=== PATIENT | male | born 1935 | race Caucasian/White ===

== ENCOUNTER 2020-06-29 02:18 | Inpatient (IN) | payer MEDICARE ==
[2020-06-29] VITALS (11 sets, daily range): BP systolic 102–142; BP diastolic 41–71
[~2020-06-29] VITALS: Ht 175 cm; Wt 80.0 kg
[~2020-06-29 02:18] MED LIST: ALLP100T PO; ASP81TEC PO; CALC390T PO; FAMO20TA5 PO; GLIM2TAB PO; LISI1TAB6 PO; OMEG1CAP51 PO; PIOG1TAB PO; [UNRECOGNIZED DRUG - OTHER] PO
[2020-06-29] MEDS ORDERED: MELATONIN 3 MG TABLET PO PRN (04:15)
[2020-06-29] MEDS ORDERED: IBUPROFEN TABLET 200 MG TAB PO PRN (04:15)
[2020-06-29] MEDS ORDERED: ONDANSETRON 4 MG/2 ML (SDV) Z0FRAN IVP PRN (04:15)
[2020-06-29] MEDS ORDERED: ACETAMINOPHEN 325 MG TABLET PO PRN (04:15)
[2020-06-29] MEDS ORDERED: guaiFENesin/DM (ROBITUSSIN DM) 10 ML UDC PO PRN (04:15)
[2020-06-29] MEDS ORDERED: diphenhydrAMINE 25 MG TAB (BENADRYL) PO PRN (04:15)
[2020-06-29] MEDS ORDERED: fentaNYL INJECTION 100 MCG/2 ML AMP IVP PRN (04:15)
[2020-06-29 04:44] LABS: BASOPHILS % (AUTO) 0 % (0-10); EOSINOPHILS % (AUTO) 0 % (0-10); HEMATOCRIT 35 % (40-54); HEMOGLOBIN 11.2 g/dL (13.3-17.7); LYMPHOCYTES # (AUTO) 0.8 10^3/uL (1.0-4.0); LYMPHOCYTES % (AUTO) 5 % (12-44); MEAN CORPUSCULAR HEMOGLOBIN 33 pg (25-34); MEAN CORPUSCULAR HGB CONC 33 g/dL (32-36); MEAN CORPUSCULAR VOLUME 102 fL (80-99); MEAN PLATELET VOLUME 9.8 fL (9.0-12.2); MONOCYTES # (AUTO) 0.5 10^3/uL (0.0-1.0); MONOCYTES % (AUTO) 3 % (0-12); NEUTROPHILS # (AUTO) 13.7 10^3/uL (1.8-7.8); NEUTROPHILS % (AUTO) 91 % (42-75); PLATELET COUNT 234 10^3/uL (130-400); WHITE BLOOD COUNT 15.1 10^3/uL (4.3-11.0)
[2020-06-29 04:53] LABS: ALBUMIN 3.5 GM/DL (3.2-4.5); CHLORIDE 98 MMOL/L (98-107); POTASSIUM 4.2 MMOL/L (3.6-5.0); SODIUM 131 MMOL/L (135-145)
[2020-06-29 04:55] LABS: GLUCOSE 206 MG/DL (70-105); TOTAL PROTEIN 5.8 GM/DL (6.4-8.2)
[2020-06-29 04:56] LABS: CARBON DIOXIDE 22 MMOL/L (21-32)
[2020-06-29 04:57] LABS: BILIRUBIN,TOTAL 0.4 MG/DL (0.1-1.0)
[2020-06-29 04:59] LABS: ALKALINE PHOSPHATASE 68 U/L (40-136); CREATININE SERUM 1.14 MG/DL (0.60-1.30); GFR ESTIMATED > 60
[2020-06-29 05:00] LABS: BUN/CREATININE RATIO 18
[2020-06-29 05:02] LABS: ALANINE AMINOTRANSFERASE 15 U/L (0-55)
[2020-06-29 05:25] LABS: ANISOCYTOSIS SLIGHT; BAND NEUTROPHILS 13 %; LYMPHOCYTES % (MANUAL) 6 %; METAMYELOCYTES % 2 %; MICROCYTOSIS SLIGHT; MONOCYTES % (MANUAL) 5 %; NEUTROPHILS % (MANUAL) 74 %; POIKILOCYTOSIS SLIGHT; POLYCHROMASIA SLIGHT
[2020-06-29 05:25] LABS: BILIRUBIN,URINE NEGATIVE (NEGATIVE); CLARITY,URINE CLEAR; COLOR,URINE YELLOW; GLUCOSE, URINE (UA) NEGATIVE (NEGATIVE); KETONES,URINE NEGATIVE (NEGATIVE); LEUKOCYTE ESTERASE ,URINE NEGATIVE (NEGATIVE); NITRITE,URINE NEGATIVE (NEGATIVE); PH,URINE 6.5 (5-9); PROTEIN,URINE NEGATIVE (NEGATIVE)
[2020-06-29 05:35] LABS: BACTERIA,URINE NEGATIVE /HPF; SQUAMOUS EPITHELIAL CELL,UR 0-2 /HPF
[2020-06-29] MEDS: AZITHROMYCIN INJECTION 500 MG in NS (IVPB) 250 ML IV SCH (08:48)
[2020-06-29] MEDS: cefTRIAXone FOR IV USE 1,000 MG in WATER (STERILE) FOR INJECTION 10 ML IV SCH (08:48)
[2020-06-29] MEDS ORDERED: ASPIRIN E.C. 325 MG (ECOTRIN) TABLET PO SCH (09:00)
--- NOTE | 2020-06-29 11:20 | Diagnostic Imaging Report ---
INDICATION: History of prostate cancer, strep throat, fever. TECHNIQUE: Single view chest 10:46 AM. CORRELATION STUDY: 01/28/2011 FINDINGS: There is suboptimal depth of inspiration. Given this, there is some crowding and atelectasis at the lung bases. Definitive consolidating infiltrate is not suggested. This also results in cardiac enlargement and mild vascular prominence. Calcified granuloma lateral left lung. Rather advanced degenerative change of the right to lesser degree left shoulder. Ventricular calcified loose bodies of the right shoulder. Gas below the right diaphragm appears generally stable slightly gas within the hepatic flexure. IMPRESSION: 1. Likely bibasilar areas of atelectasis owing to hypoventilation. Dictated by: Dictated on workstation # [id number]
[2020-06-29] MEDS ORDERED: CLOPIDOGREL 300 MG (PLAVIX) TABLET PO NR (11:30)
[2020-06-29] MEDS: ENOXAPARIN 80 MG/0.8 ML (LOVENOX) SYR SC SCH (12:05)
--- NOTE | 2020-06-29 14:20 | History & Physical-Hospitalist ---
History of Present Illness HPI/Chief Complaint Genaro Patel is an 84-year-old male with past medical history of hypertension, diabetes, coronary artery disease, GERD, gout, prostate cancer, who presented with chills. He reports that he had been at home and was shaking. He reports having fever. He denies any shortness of breath or cough. He denies any dysuria. He denies any chest pain or palpitations. He denies any abdominal pain. He denies any nausea or vomiting. He denies any diarrhea. He has no other complaints or concerns. He does have a history of coronary artery disease and has required 8 stents. Source: patient Exam Limitations: no limitations Date Seen 06/29/20 Time Seen by a Provider: 10:25 Attending Physician Monica Bañuelos Iftikhar MD Referring Physician Date of Admission Jun 29, 2020 at 03:39 Home Medications & Allergies Home Medications Reviewed patient Home Medication Reconciliation performed by pharmacy medication reconciliations thermal technician and/or nursing. Patients Allergies have been reviewed. Allergies Allergies Coded Allergies No Known Drug Allergies (Unverified02/04/11) Past Npwvttr-Dggrss-Rmuhdh Hx Past Med/Social Hx: Reviewed Nursing Past Med/Soc Hx Patient Social History Alcohol Use: Denies Use Recreational Drug Use: No Smoking Status: Former Smoker Physical Abuse Screen: No Sexual Abuse: No Recent Foreign Travel: No Contact w/other who traveled: No Recent Infectious Disease Expo: No Immunizations Up To Date Date of Pneumonia Vaccine: Jun 29, 2018 Seasonal Allergies Seasonal Allergies: No Past Medical History Reproductive: No Sexually Transmitted Disease: No History of Blood Disorders: Yes Review of Systems Constitutional: chills EENTM: no symptoms reported Respiratory: no symptoms reported Cardiovascular: no symptoms reported Gastrointestinal: no symptoms reported Genitourinary: no symptoms reported Musculoskeletal: no symptoms reported Skin: no symptoms reported Psychiatric/Neurological: No Symptoms Reported Physical Exam Physical Exam Vital Signs Vital Signs - First Documented 06/29/20 03:45 Temp 37.0 Pulse 68 Resp 18 B/P (MAP) 142/63 (89) Pulse Ox 96 O2 Delivery Room Air Capillary Refill : Less Than 3 Seconds Height, Weight, BMI Height: '" Weight: lbs. oz. kg; 25.79 BMI Method: General Appearance: No Apparent Distress, WD/WN HEENT: PERRL/EOMI, Pharynx Normal Neck: Normal Inspection, Supple Respiratory: Lungs Clear, Normal Breath Sounds, No Respiratory Distress Cardiovascular: Regular Rate, Rhythm, No Edema, No Murmur Gastrointestinal: Normal Bowel Sounds, Non Tender, Soft Extremity: Normal Inspection, Non Tender, No Pedal Edema Neurologic/Psychiatric: Alert, Oriented x3, No Motor/Sensory Deficits, Normal Mood/Affect Skin: Normal Color, Warm/Dry Results Results/Procedures Labs Laboratory Tests 06/29/20 04:25 Patient resulted labs reviewed. Imaging: Reviewed Imaging Report Assessment/Plan Admission Diagnosis NSTEMI Admission Status: Inpatient Order (span 2 midnights) Reason for Inpatient Admission: NSTEMI requiring further cardiology treatment and evaluation Assessment and Plan NSTEMI No chest pain EKG without acute changes Troponin trended up 2.2 this morning Cardiology consulted, appreciate assistance Started on ASA and Plavix Begin Metoprolol Continue Lisinopril Started on Lovenox SIRS Elevated procalcitonin Strep pharyngitis Reported fever at OSH, bandemia 38% Strep swab positive Chest xray without consolidation Repeat chest xray again without consolidation UA unremarkable Started on Rocephin and Azithromycin Obtain blood cultures Lactic acid normal Procalcitonin 32 T2DM SSI DVT Prophylaxis: already receiving therapeutic anticoagulation Diagnosis/Problems Diagnosis/Problems (1) NSTEMI (non-ST elevated myocardial infarction) Status: Acute (2) SIRS (systemic inflammatory response syndrome) Status: Acute (3) Elevated procalcitonin Status: Acute (4) Strep pharyngitis Status: Acute (5) T2DM (type 2 diabetes mellitus) Status: Chronic (6) HTN (hypertension) Status: Chronic MANUELITO LEMA MD Jun 29, 2020 14:20
[2020-06-29] MEDS ORDERED: ALLO300T2 PO (16:34)
[2020-06-29] MEDS ORDERED: CYAN-41 PO (16:34)
[2020-06-29] MEDS ORDERED: LISI-556 PO (16:34)
[2020-06-29] MEDS ORDERED: LEVO75TA6 PO (16:34)
[2020-06-29] MEDS ORDERED: TRIA15OI9 TOP (16:34)
[2020-06-29] MEDS ORDERED: DOXY100C2 PO (16:34)
[2020-06-29] MEDS ORDERED: REPA1TAB PO ×2 (16:34)
[2020-06-29] MEDS ORDERED: AMMO385C5 TOP (16:34)
[2020-06-29] MEDS ORDERED: ASPI-1238 PO (16:34)
[2020-06-29] MEDS ORDERED: CHOL10007 PO (16:34)
[2020-06-29] MEDS ORDERED: TMSL.4C PO (16:34)
[2020-06-29] MEDS ORDERED: FLUO20CA46 PO (16:34)
[2020-06-29] MEDS ORDERED: ROSU10TA28 PO (16:34)
[2020-06-29] MEDS ORDERED: FURO20TA4 PO (16:34)
--- NOTE | 2020-06-29 16:36 | NUR ---
SPOKE WITH THE PT(CALLED HIS CELL) AND WENT THRU THE EXT MED HISTORY TO COMPLETE THE MED REC PT WAS NOT ABLE TO REMEMBER THE NAMES OF HIS MEDICATIONS BUT WHEN I SAID THE NAMES (USING THE EXT MED HISTORY) THE PT WAS ABLE TO TELL ME HOW/WHEN HE TAKES EACH MEDICATION OTC MEDS: ASPIRIN 81 VIT B-12 VIT D3
--- NOTE | 2020-06-29 17:44 | Consultation-Cardiology ---
HPI-Cardiology Cardiology Consultation: Date of Consultation 06/29/20 Date of Admission Attending Physician Monica Bañuelos DO Admitting Physician Benji Guillermo MD Consulting Physician Stacey VASQUEZ MD HPI: Time Seen by a Provider: 11:00 Chief Complaint: Fatigue This is a 84-year-old gentleman with history of hypertension, diabetes, coronary artery disease, previous multiple PCI who presented with fever and chills. He denied any significant shortness of breath or cough. Significantly elevated white count. Working diagnosis of sepsis. He does have previous history of coronary artery disease with numerous stents done in [place]. Patient has positive troponin. He denies any chest pain. Denies active smoking. Pertinent family history is negative. Review of Systems-Cardiology Review of Systems Constitutional: As described under HPI; No As described under HPI, No no symptoms reported, No chills, No fever, No lightheadedness; tiredness Eyes: No As described under HPI, No no symptoms reported, No blindness, No blurred vision, No contact lenses, No drainage, No decreased acuity, No foreign body sensation, No pain, No vision change Ears/Nose/Throat: No As described under HPI, No no symptoms reported, No chronic hearing loss, No ear discharge, No ear pain, No nasal drainage, No ulcerations Respiratory: No no symptoms reported; As described under HPI; No As described under HPI, No cough, No orthopnea, No shortness of breath, No SOB with excertion Cardiovascular: No no symptoms reported; As described under HPI; No As described under HPI, No chest pain, No edema, No irregular heart rate, No lightheadedness, No palpitations Gastrointestinal: No no symptoms reported, No As described under HPI, No abdomen distended, No abdominal pain, No blood streaked bowels, No constipation, No diarrhea, No nausea, No vomiting, No stool coloration changes Genitourinary: No As described under HPI, No burning, No dysuria, No discharge, No frequency, No flank pain, No hematuria, No urgency Skin: No rash, No skin related problems, No ulcerations Psychiatric/Neurological: No anxiety, No depression, No seizure, No focal weakness, No syncope Hematologic: No bleeding abnormalities [facility]-[place] Hx Patient Social History Alcohol Use: Denies Use Recreational Drug Use: No Smoking Status: Former Smoker Recent Foreign Travel: No Recent Infectious Disease Expo: No Physical Abuse Screen: No Sexual Abuse: No Immunizations Up To Date Date of Pneumonia Vaccine: Jun 29, 2018 Past Medical History PMH As described under Assessment. Allergies and Home Medications Allergies Coded Allergies: No Known Drug Allergies (Unverified , 02/04/11) Home Medications Allopurinol 300 Mg Tablet, 300 MG PO DAILY, (Reported) Ammonium Lactate 385 Gm Cream..g., 1 APPLIC TOP DAILY, (Reported) APPLY TO ARMS AND LEGS Aspirin 81 Mg Tablet.dr, 81 MG PO HS, (Reported) Cholecalciferol (Vitamin D3) 25 Mcg Capsule, 25 MCG PO TID, (Reported) Cyanocobalamin (Vitamin B-12) 1,000 Mcg Tablet, 1,000 MCG PO DAILY, (Reported) Doxycycline Hyclate 100 Mg Capsule, 100 MG PO BID, (Reported) FILLED 06-19-2020 #20/10 DAY SUPPLY Fluoxetine HCl 20 Mg Capsule, 20 MG PO 1700, (Reported) Furosemide 20 Mg Tablet, 20 MG PO Q48H, (Reported) Levothyroxine Sodium 75 Mcg Tablet, 75 MCG PO DAILY, (Reported) Lisinopril 5 Mg Tablet, 5 MG PO BID, (Reported) Repaglinide 1 Mg Tablet, 2 MG PO DAILY, (Reported) TAKES 2 (1MG) TABS Repaglinide 1 Mg Tablet, 1 MG PO 1700 PRN for HYPERGLYCEMIA, (Reported) Rosuvastatin Calcium 10 Mg Tablet, 10 MG PO HS, (Reported) Tamsulosin HCl 0.4 Mg Cap, 0.4 MG PO 1700, (Reported) Triamcinolone Acetonide 15 Gm Oint, 1 APPFUL TOP PRN PRN for RASH, (Reported) Patient Home Medication List Home Medication List Reviewed: Yes Physical Exam-Cardiology Physical Exam Vital Signs/I&O 06/30/20 06/30/20 06/30/20 06/30/20 04:07 04:08 07:00 07:47 Temp 36.6 36.0 Pulse 67 75 67 Resp 20 24 B/P (MAP) 112/59 (76) 120/64 (82) Pulse Ox 92 94 O2 Delivery Room Air Room Air Room Air 06/30/20 06/30/20 06/30/20 08:00 08:00 12:00 Temp 35.9 Pulse 60 Resp 21 B/P (MAP) 133/59 (83) Pulse Ox 97 O2 Delivery Room Air Room Air Room Air 06/30/20 00:00 Intake Total 1440 ml Output Total 1050 ml Balance 390 ml Capillary Refill : Less Than 3 Seconds Constitutional: appears stated age, AAO x 3; No apparent distress; well- developed, well-nourished HEENT: PERRL; No discharge; hearing is well preserved, oral hygience is good; No ulceration, No xanthelasmas are seen Neck: No carotid bruit; carotid pulses are 2 + bilaterally Respiratory: chest is bilaterally symmetric, lungs clear to auscultation Cardiovascular: regular rate-rhythm, S1 and S2 Gastrointestinal: soft, audible bowel sounds; No spleenomegaly Rectal: deferred Extremities: normal range of motion, non-tender, normal inspection; No clubbing, No cyanosis; no lower extremity edema bilateral; No significant edema Neurologic/Psychiatric: no motor/sensory deficits, alert, normal mood/affect, oriented x 3, power is 5/5 both on sides Skin: normal color; No rash, No ulcerations Data Review Labs Laboratory Tests 06/29/20 21:15: Urine Color YELLOW, Urine Clarity CLEAR, Urine pH 7.0, Urine Specific [place] 1.015L, Urine Protein NEGATIVE, Urine Glucose (UA) NEGATIVE, Urine Ketones NEGATIVE, Urine Nitrite NEGATIVE, Urine Bilirubin NEGATIVE, Urine Urobilinogen 0.2, Urine Leukocyte Esterase NEGATIVE, Urine RBC (Auto) NEGATIVE, Urine RBC 0- 2, Urine WBC 0-2, Urine Squamous Epithelial Cells NONE, Urine Crystals NONE, Urine Bacteria TRACE, Urine Casts NONE, Urine Mucus NEGATIVE, Urine Culture Indicated NO 06/30/20 02:50: White Blood Count 7.9, Red Blood Count 3.11L, Hemoglobin 10.5L, Hematocrit 32L, Mean Corpuscular Volume 102H, Mean Corpuscular Hemoglobin 34, Mean Corpuscular Hemoglobin Concent 33, Red Cell Distribution Width 14.3, Platelet Count 192, Mean Platelet Volume 10.1, Immature Granulocyte % (Auto) 0, Neutrophils (%) (Auto) 78H, Lymphocytes (%) (Auto) 13, Monocytes (%) (Auto) 8, Eosinophils (%) (Auto) 0, Basophils (%) (Auto) 0, Neutrophils # (Auto) 6.1, Lymphocytes # (Auto) 1.0, Monocytes # (Auto) 0.6, Eosinophils # (Auto) 0.0, Basophils # (Auto) 0.0, Immature Granulocyte # (Auto) 0.0, Sodium Level 130L, Potassium Level 3.8, Chloride Level 99, Carbon Dioxide Level 21, Anion Gap 10, Blood Urea Nitrogen 21H, Creatinine 0.97, Estimat Glomerular Filtration Rate > 60, BUN/Creatinine Ratio 22, Glucose Level 133H, Calcium Level 7.6L, Corrected Calcium 8.2L, Total Bilirubin 0.3, Aspartate Amino Transf (AST/SGOT) 27, Alanine Aminotransferase (ALT/SGPT) 17, Alkaline Phosphatase 64, Total Protein 5.4L, Albumin 3.2, Procalcitonin 29.98H ECG Impression ECG Comment Artifact. No acute ST-T wave abnormalities. A/P-Cardiology Assessment/Admission Diagnosis Severe sepsis, Hyponatremia, CAD, Non-STEMI Plan Severe sepsis, broad-spectrum antibiotics. Defer to the primary team. Hyponatremia, unclear etiology. CAD, dual antiplatelet therapy. Non-STEMI, positive troponin. Previous multiple PCI. Will likely require coronary angiography. However patient is not having active chest pain. No active ST-T wave abnormalities on EKG. Severe sepsis. I will wait for the sepsis to improve before we intervene. Thank you for your consultation. Please call me if you have any questions. Rick Vasquez MD, FACP, FACC, FSCAI, FHRS, CCDS Interventional Cardiology Cardiac Electrophysiology Vascular Medicine and Endovascular Interventions Stacey VASQUEZ MD Jun 29, 2020 17:44
[2020-06-29] MEDS: meTOprolol TARTRATE 25 MG (LOPRESSOR) TABLET PO SCH (20:23)
[2020-06-29 21:28] LABS: BILIRUBIN,URINE NEGATIVE (NEGATIVE); CLARITY,URINE CLEAR; COLOR,URINE YELLOW; GLUCOSE, URINE (UA) NEGATIVE (NEGATIVE); KETONES,URINE NEGATIVE (NEGATIVE); LEUKOCYTE ESTERASE ,URINE NEGATIVE (NEGATIVE); NITRITE,URINE NEGATIVE (NEGATIVE); PROTEIN,URINE NEGATIVE (NEGATIVE)
[2020-06-29 21:35] LABS: RBC,URINE 0-2 /HPF; WBC,URINE 0-2 /HPF
[2020-06-29 21:36] LABS: BACTERIA,URINE TRACE /HPF
[2020-06-30 00:15] VITALS: BP 109/64
[2020-06-30] MEDS: ENOXAPARIN 80 MG/0.8 ML (LOVENOX) SYR SC SCH ×2 (00:15→15:24)
[2020-06-30 03:30] LABS: BASOPHILS % (AUTO) 0 % (0-10); EOSINOPHILS % (AUTO) 0 % (0-10); HEMATOCRIT 32 % (40-54); HEMOGLOBIN 10.5 g/dL (13.3-17.7); LYMPHOCYTES % (AUTO) 13 % (12-44); MEAN CORPUSCULAR HEMOGLOBIN 34 pg (25-34); MEAN CORPUSCULAR HGB CONC 33 g/dL (32-36); MEAN CORPUSCULAR VOLUME 102 fL (80-99); MEAN PLATELET VOLUME 10.1 fL (9.0-12.2); MONOCYTES # (AUTO) 0.6 10^3/uL (0.0-1.0); MONOCYTES % (AUTO) 8 % (0-12); NEUTROPHILS # (AUTO) 6.1 10^3/uL (1.8-7.8); NEUTROPHILS % (AUTO) 78 % (42-75); PLATELET COUNT 192 10^3/uL (130-400); WHITE BLOOD COUNT 7.9 10^3/uL (4.3-11.0)
[2020-06-30 03:46] LABS: ALBUMIN 3.2 GM/DL (3.2-4.5); CHLORIDE 99 MMOL/L (98-107); POTASSIUM 3.8 MMOL/L (3.6-5.0); SODIUM 130 MMOL/L (135-145)
[2020-06-30 03:47] LABS: CALCIUM 7.6 MG/DL (8.5-10.1)
[2020-06-30 03:48] LABS: GLUCOSE 133 MG/DL (70-105)
[2020-06-30 03:49] LABS: TOTAL PROTEIN 5.4 GM/DL (6.4-8.2)
[2020-06-30 03:50] LABS: BILIRUBIN,TOTAL 0.3 MG/DL (0.1-1.0); CARBON DIOXIDE 21 MMOL/L (21-32)
[2020-06-30 03:52] LABS: ALKALINE PHOSPHATASE 64 U/L (40-136); CREATININE SERUM 0.97 MG/DL (0.60-1.30); GFR ESTIMATED > 60
[2020-06-30 03:53] LABS: BUN/CREATININE RATIO 22
[2020-06-30 03:55] LABS: ALANINE AMINOTRANSFERASE 17 U/L (0-55)
[2020-06-30 04:07] VITALS: BP 112/59
--- NOTE | 2020-06-30 07:08 | NUR ---
DR. LEMA NOTIFIED OF PT'S COVID PCR LAB RESULTS BEING NEGATIVE. DR. LEMA STILL WANTS PT TO STAY IN ISOLATION UNTIL HE SEES THE PT.
[2020-06-30 07:47] VITALS: BP 120/64
[2020-06-30] MEDS: meTOprolol TARTRATE 25 MG (LOPRESSOR) TABLET PO SCH ×2 (08:35→19:34)
[2020-06-30] MEDS: CLOPIDOGREL 75 MG (PLAVIX) TABLET PO SCH (08:35)
[2020-06-30] MEDS: ASPIRIN E.C. 81 MG (ECOTRIN) TAB PO SCH (08:35)
[2020-06-30] MEDS: cefTRIAXone FOR IV USE 1,000 MG in WATER (STERILE) FOR INJECTION 10 ML IV SCH (08:35)
[2020-06-30] MEDS: AZITHROMYCIN INJECTION 500 MG in NS (IVPB) 250 ML IV SCH (08:35)
[2020-06-30] MEDS: lisINopril 40 MG (PRINIVIL) TABLET PO SCH (08:36)
[2020-06-30 12:00] VITALS: BP 133/59
--- NOTE | 2020-06-30 12:19 | Progress Note - Hospitalist ---
Subjective HPI/CC On Admission Date Seen by Provider: Jun 30, 2020 Time Seen by Provider: 12:11 Genaro Patel is an 84-year-old male with past medical history of hypertension, diabetes, coronary artery disease, GERD, gout, prostate cancer, who presented with chills. He reports that he had been at home and was shaking. He reports having fever. He denies any shortness of breath or cough. He denies any dysuria. He denies any chest pain or palpitations. He denies any abdominal pain. He denies any nausea or vomiting. He denies any diarrhea. He has no other complaints or concerns. He does have a history of coronary artery disease and has required 8 stents. Subjective/Events-last exam Patient denies rigors fever chest pain or shortness of breath. He reports previous he had a mild sore throat but presented to an outside emergency room because of rigors where he was reportedly feverish. He had significant fatigue but also denied abdominal pain dysuria or change in urinary stream which she states has been weak for some time. He had had no increase in frequency. He reports a longstanding nonproductive cough to mildly productive with clear sputum only. He is had no myalgia denies alteration in sense of taste or smell or recent Covid exposure or known infection. He has tested negative for Covid via rapid antigen as well as PCR.He is feeling better voicing no complaints currently.He denied any problems with chest arm or neck discomfort. Focused Exam Lactate Level 06/29/20 10:54: Lactic Acid Level 0.94 Objective Exam Vital Signs Vital Signs Date Time Temp Pulse Resp B/P (MAP) Pulse Ox O2 Delivery O2 Flow Rate FiO2 06/30/20 12:00 35.9 60 21 133/59 (83) 97 Room Air Capillary Refill : Less Than 3 Seconds General Appearance: No Apparent Distress Respiratory: No Accessory Muscle Use, No Respiratory Distress (Few rales in the right base otherwise clear), Other Cardiovascular: Regular Rate, Rhythm, No Edema, No Gallop, No JVD, No Murmur, Normal Peripheral Pulses Gastrointestinal: Normal Bowel Sounds, No Organomegaly, No Pulsatile Mass, Non Tender, Soft Extremity: Other (Extremities reveal no cyanosis clubbing or edema no evidence for infection/cellulitis) Results/Procedures Lab Laboratory Tests 06/30/20 02:50 Patient resulted labs reviewed. Imaging: Reviewed Imaging Report Assessment/Plan Assessment and Plan Assess & Plan/Chief Complaint 1. Rigors likely due to bacteremia unclear etiology there is a possibility based on x-ray and exam findings of right lower lobe pneumonia. Patient has been afebrile for 24 hours and is Covid negative via rapid antigen and PCR will take out of isolation. Currently the patient exhibits no evidence for pharyngitis with a minimal throat symptoms raises the likelihood of strep colonization although certainly cannot rule out infection entirely. White count has returned to normal with patient improvement continue IV antibiotics. 2. Considering lack of symptoms or acute ECG findings and in light of stable troponin elevation acute coronary syndrome highly unlikely possible type II OR. 3. History of coronary artery disease Further evaluation deferred to cardiology. CALEB JACKSON MD Jun 30, 2020 12:19
--- NOTE | 2020-06-30 13:37 | Cardiology Progress Note ---
Cardiology SOAP Progress Note Subjective: No chest pain. Objective: I&O/Vital Signs 06/30/20 06/30/20 06/30/20 06/30/20 04:07 04:08 07:00 07:47 Temp 36.6 36.0 Pulse 67 75 67 Resp 20 24 B/P (MAP) 112/59 (76) 120/64 (82) Pulse Ox 92 94 O2 Delivery Room Air Room Air Room Air 06/30/20 06/30/20 06/30/20 08:00 08:00 12:00 Temp 35.9 Pulse 60 Resp 21 B/P (MAP) 133/59 (83) Pulse Ox 97 O2 Delivery Room Air Room Air Room Air 06/30/20 00:00 Intake Total 1440 ml Output Total 1050 ml Balance 390 ml Constitutional: appears stated age, AAO x 3; No apparent distress; well- developed, well-nourished Respiratory: chest is bilaterally symmetric, lungs clear to auscultation Cardiovascular: regular rate-rhythm, S1 and S2 Gastrointestional: soft, audible bowel sounds; No spleenomegaly Extremities: normal range of motion, non-tender, normal inspection; No clubbing, No cyanosis; no lower extremity edema bilateral; No significant edema Neurologic/Psychiatric: no motor/sensory deficits, alert, normal mood/affect, oriented x 3, power is 5/5 both on sides Skin: normal color; No rash, No ulcerations Results/Procedures: Labs Laboratory Tests 06/29/20 21:15: Urine Color YELLOW, Urine Clarity CLEAR, Urine pH 7.0, Urine Specific [place] 1.015L, Urine Protein NEGATIVE, Urine Glucose (UA) NEGATIVE, Urine Ketones NEGATIVE, Urine Nitrite NEGATIVE, Urine Bilirubin NEGATIVE, Urine Urobilinogen 0.2, Urine Leukocyte Esterase NEGATIVE, Urine RBC (Auto) NEGATIVE, Urine RBC 0- 2, Urine WBC 0-2, Urine Squamous Epithelial Cells NONE, Urine Crystals NONE, Urine Bacteria TRACE, Urine Casts NONE, Urine Mucus NEGATIVE, Urine Culture Indicated NO 06/30/20 02:50: White Blood Count 7.9, Red Blood Count 3.11L, Hemoglobin 10.5L, Hematocrit 32L, Mean Corpuscular Volume 102H, Mean Corpuscular Hemoglobin 34, Mean Corpuscular Hemoglobin Concent 33, Red Cell Distribution Width 14.3, Platelet Count 192, Mean Platelet Volume 10.1, Immature Granulocyte % (Auto) 0, Neutrophils (%) (Auto) 78H, Lymphocytes (%) (Auto) 13, Monocytes (%) (Auto) 8, Eosinophils (%) (Auto) 0, Basophils (%) (Auto) 0, Neutrophils # (Auto) 6.1, Lymphocytes # (Auto) 1.0, Monocytes # (Auto) 0.6, Eosinophils # (Auto) 0.0, Basophils # (Auto) 0.0, Immature Granulocyte # (Auto) 0.0, Sodium Level 130L, Potassium Level 3.8, Chloride Level 99, Carbon Dioxide Level 21, Anion Gap 10, Blood Urea Nitrogen 21H, Creatinine 0.97, Estimat Glomerular Filtration Rate > 60, BUN/Creatinine Ratio 22, Glucose Level 133H, Calcium Level 7.6L, Corrected Calcium 8.2L, Total Bilirubin 0.3, Aspartate Amino Transf (AST/SGOT) 27, Alanine Aminotransferase (ALT/SGPT) 17, Alkaline Phosphatase 64, Total Protein 5.4L, Albumin 3.2, Procalcitonin 29.98H A/P: Assessment/Dx: Severe sepsis, Hyponatremia, CAD, Non-STEMI Plan: Severe sepsis, broad-spectrum antibiotics. Defer to the primary team. Hyponatremia, unclear etiology. CAD, dual antiplatelet therapy. Non-STEMI, positive troponin. Previous multiple PCI. Will likely require coronary angiography. However patient is not having active chest pain. No active ST-T wave abnormalities on EKG. Severe sepsis. I will wait for the sepsis to improve before we intervene. Negative COVID-19 PCR. Thank you for your consultation. Please call me if you have any questions. Rick Vasquez MD, FACP, FACC, FSCAI, FHRS, CCDS Interventional Cardiology Cardiac Electrophysiology Vascular Medicine and Endovascular Interventions Focused Exam Lactate Level 06/29/20 10:54: Lactic Acid Level 0.94 Stacey VASQUEZ MD Jun 30, 2020 13:36
[2020-06-30 16:00] VITALS: BP 136/66
--- NOTE | 2020-06-30 18:40 | NUR ---
PT CALLS THIS RN TO BEDSIDE DUE TO SHAKING. PT STATES, "THE LAST TIME I DID THIS THEY TOLD ME THAT I HAD A HEART ATTACK." PT HAS NO C/O CHEST PAIN AT THIS TIME. PRN EKG COMPLETED, BUT DIFFICULT TO READ D/T PT'S SHAKING. THIS RN NOTIFIES VISHNUD DUE TO ABNORMAL EKG AND NOTIFIES HIM OF PT'S SHAKING AND HISTORY. ANDREA STATES, "YOU NEED TO CALL TO DR. JACKSON. HE BELIEVES THIS IS NOT A CARDIA ISSUE BUT RIGORS DUE TO BACTERIA IN THE BLOOD STREAM. HE WILL HAVE A TROPONIN IN THE MORNING, BUT FOR THIS YOU NEED TO CALL RENETTA." THIS RN THEN NOTIFIES RENETTA OF ALL THE ABOVE. RENETTA STATES, "YEEAHHH, THIS IS JUST RIGORS BECAUSE OF THE BACTERIA IN THE BLOOD. GET, [facility], GET BLOOD CULTURES AND LETS TO 25MCG OF F[place]." THIS RN ASKS IF HE WOULD LIKE ANY FLUIDS STARTED OR OTHER LABS DRAW SINCE HE IS THINKING THIS IS A RESPONSE TO SEPSIS. RENETTA STATES, "IF HE WAS HYPOTENSIVE WE WOULD START FLUIDS. WHAT IS HIS TEMP?" THIS RN STATES, "36.7." RENETTA THEN RESPONDS, "YEAH, YOU HAVE TO REMEMBER IT CAN GO EITHER WAY. HIGH TEMP OR LOW TEMP AND THAT IS A LOW TEMP."
[2020-06-30] MEDS ORDERED: fentaNYL INJECTION 100 MCG/2 ML AMP IVP ONE (19:00)
[2020-06-30] MEDS: ALPRAZolam 0.25 MG (XANAX) TAB PO PRN (19:34)
[2020-06-30] MEDS: DOCUSATE SODIUM 100 MG (COLACE) CAP PO PRN (19:34)
[2020-06-30 19:40] VITALS: BP 144/95
[2020-07-01 00:11] VITALS: BP 118/54
[2020-07-01] MEDS: ENOXAPARIN 80 MG/0.8 ML (LOVENOX) SYR SC SCH ×2 (00:11→11:28)
[2020-07-01] MEDS: ALPRAZolam 0.25 MG (XANAX) TAB PO PRN (02:36)
[2020-07-01 03:34] LABS: BASOPHILS % (AUTO) 0 % (0-10); EOSINOPHILS # (AUTO) 0.1 10^3/uL (0.0-0.3); EOSINOPHILS % (AUTO) 1 % (0-10); HEMATOCRIT 32 % (40-54); HEMOGLOBIN 10.7 g/dL (13.3-17.7); LYMPHOCYTES # (AUTO) 1.1 10^3/uL (1.0-4.0); LYMPHOCYTES % (AUTO) 15 % (12-44); MEAN CORPUSCULAR HEMOGLOBIN 34 pg (25-34); MEAN CORPUSCULAR HGB CONC 34 g/dL (32-36); MEAN CORPUSCULAR VOLUME 100 fL (80-99); MEAN PLATELET VOLUME 10.3 fL (9.0-12.2); MONOCYTES # (AUTO) 0.7 10^3/uL (0.0-1.0); MONOCYTES % (AUTO) 10 % (0-12); NEUTROPHILS # (AUTO) 5.2 10^3/uL (1.8-7.8); NEUTROPHILS % (AUTO) 73 % (42-75); PLATELET COUNT 189 10^3/uL (130-400); WHITE BLOOD COUNT 7.2 10^3/uL (4.3-11.0)
[2020-07-01 04:37] VITALS: BP 102/51
[2020-07-01 07:23] VITALS: BP 122/56
[2020-07-01] MEDS: AZITHROMYCIN INJECTION 500 MG in NS (IVPB) 250 ML IV SCH (08:02)
[2020-07-01] MEDS: meTOprolol TARTRATE 25 MG (LOPRESSOR) TABLET PO SCH ×2 (08:03→20:24)
[2020-07-01] MEDS: lisINopril 40 MG (PRINIVIL) TABLET PO SCH (08:03)
[2020-07-01] MEDS: CLOPIDOGREL 75 MG (PLAVIX) TABLET PO SCH (08:03)
[2020-07-01] MEDS: cefTRIAXone FOR IV USE 1,000 MG in WATER (STERILE) FOR INJECTION 10 ML IV SCH (08:03)
[2020-07-01] MEDS: ASPIRIN E.C. 81 MG (ECOTRIN) TAB PO SCH (08:03)
--- NOTE | 2020-07-01 10:26 | Progress Note - Hospitalist ---
Subjective HPI/CC On Admission Date Seen by Provider: Jul 01, 2020 Time Seen by Provider: 08:30 Genaro Patel is an 84-year-old male with past medical history of hypertension, diabetes, coronary artery disease, GERD, gout, prostate cancer, who presented with chills. He reports that he had been at home and was shaking. He reports having fever. He denies any shortness of breath or cough. He denies any dysuria. He denies any chest pain or palpitations. He denies any abdominal pain. He denies any nausea or vomiting. He denies any diarrhea. He has no other complaints or concerns. He does have a history of coronary artery disease and has required 8 stents. Subjective/Events-last exam Yesterday afternoon patient had onset of chills followed again by diffuse uncontrollable shaking which lasted for about 30 minutes compatible with a rigor. Instructions for repeat blood cultures were given and patient received 50 mg of fentanyl although it is unclear if there was any improvement. He denies cough chest pain abdominal pain dental pain dysuria or increase in frequency. He notes a little fatigued this morning otherwise feels as though he is about at baseline at rest. He reports no change in bowel habit. Focused Exam Lactate Level 06/29/20 10:54: Lactic Acid Level 0.94 Objective Exam Vital Signs Vital Signs Date Time Temp Pulse Resp B/P (MAP) Pulse Ox O2 Delivery O2 Flow Rate FiO2 07/01/20 08:00 Room Air 07/01/20 07:23 36.2 65 20 122/56 (78) 95 Capillary Refill : Less Than 3 Seconds General Appearance: No Apparent Distress Respiratory: Other (Few basilar rales noted without any focal consolidative findings chest otherwise clear) Cardiovascular: Regular Rate, Rhythm, No Edema, No Gallop, No JVD, No Murmur, Normal Peripheral Pulses Gastrointestinal: Normal Bowel Sounds, No Organomegaly, No Pulsatile Mass, Non Tender, Soft Extremity: Normal Capillary Refill, Normal Inspection, Normal Range of Motion, Non Tender, No Calf Tenderness, No Pedal Edema Neurologic/Psychiatric: Alert, Oriented x3 Skin: Normal Color, Warm/Dry Results/Procedures Lab Laboratory Tests 07/01/20 03:00 Patient resulted labs reviewed. Imaging: Reviewed Imaging Report Assessment/Plan Assessment and Plan Assess & Plan/Chief Complaint 1. Rigors likely due to bacteremia unclear etiology. Blood cultures from the 11th negative should be repeat cultures pending from the as well. Will discuss obtaining echocardiogram to evaluate for any findings to suggest endocarditis although in light of negative cultures thus far and lack of murmur felt to be less likely. Patient has been afebrile for 24 hours and is Covid negative via rapid antigen and PCR will take out of isolation. Currently the patient exhibits no evidence for pharyngitis with a minimal throat symptoms raises the likelihood of strep colonization although certainly cannot rule out infection entirely. White count has returned to normal with patient improvement continue IV antibiotics. 2. Considering lack of symptoms or acute ECG findings and in light of stable troponin elevation acute coronary syndrome highly unlikely This morning's troponin down significantly no symptoms to suggest acute coronary syndrome continue conservative management per Dr. Nichols likely pharmacologic stress test next week. 3. History of coronary artery disease Further evaluation deferred to cardiology. CALEB JACKSON MD Jul 01, 2020 10:26
[2020-07-01 11:59] VITALS: BP 131/62
--- NOTE | 2020-07-01 13:56 | Cardiology Progress Note ---
Cardiology SOAP Progress Note Subjective: No chest pain. Patient had an episode of fever and rigors overnight. Objective: I&O/Vital Signs 07/01/20 07/01/20 07/01/20 07/01/20 04:37 05:42 07:00 07:23 Temp 36.8 36.2 Pulse 65 60 65 Resp 20 20 B/P (MAP) 102/51 (68) 122/56 (78) Pulse Ox 94 95 O2 Delivery Room Air Room Air Room Air 07/01/20 07/01/20 07/01/20 07/01/20 08:00 11:59 12:00 12:27 Temp 36.9 Pulse 63 57 Resp 17 B/P (MAP) 131/62 (85) Pulse Ox 98 O2 Delivery Room Air Room Air Room Air 07/01/20 00:00 Intake Total 1450 ml Output Total 1150 ml Balance 300 ml Constitutional: appears stated age, AAO x 3; No apparent distress; well- developed, well-nourished Respiratory: chest is bilaterally symmetric, lungs clear to auscultation Cardiovascular: regular rate-rhythm, S1 and S2 Gastrointestional: soft, audible bowel sounds; No spleenomegaly Extremities: normal range of motion, non-tender, normal inspection; No clubbing, No cyanosis; no lower extremity edema bilateral; No significant edema Neurologic/Psychiatric: no motor/sensory deficits, alert, normal mood/affect, oriented x 3, power is 5/5 both on sides Skin: normal color; No rash, No ulcerations Results/Procedures: Labs Laboratory Tests 06/30/20 18:47: Glucometer 139H 07/01/20 03:00: White Blood Count 7.2, Red Blood Count 3.18L, Hemoglobin 10.7L, Hematocrit 32L, Mean Corpuscular Volume 100H, Mean Corpuscular Hemoglobin 34, Mean Corpuscular Hemoglobin Concent 34, Red Cell Distribution Width 14.0, Platelet Count 189, Mean Platelet Volume 10.3, Immature Granulocyte % (Auto) 0, Neutrophils (%) (Auto) 73, Lymphocytes (%) (Auto) 15, Monocytes (%) (Auto) 10, Eosinophils (%) (Auto) 1, Basophils (%) (Auto) 0, Neutrophils # (Auto) 5.2, Lymphocytes # (Auto) 1.1, Monocytes # (Auto) 0.7, Eosinophils # (Auto) 0.1, Basophils # (Auto) 0.0, Immature Granulocyte # (Auto) 0.0 07/01/20 11:38: Glucometer 128H Microbiology 06/29/20 Blood Culture - Preliminary, Resulted No growth A/P: Assessment/Dx: Severe sepsis, Hyponatremia, CAD, Non-STEMI/type II SC Plan: Severe sepsis, broad-spectrum antibiotics. Defer to the primary team. Hyponatremia, unclear etiology. CAD, dual antiplatelet therapy. Non-STEMI, positive troponin. Previous multiple PCI. However patient is not having active chest pain. No active ST-T wave abnormalities on EKG. Severe sepsis. I discussed at length with the patient and Dr. Molina. There is a possibility that the patient's positive troponin is due to severe systemic illness i.e. severe sepsis. Therefore one reasonable option is to go ahead and do a nuclear stress testing for risk stratification. If significant ischemic burden, coronary angiography will be indicated. Echocardiogram done today showed normal LV function with no wall motion abnormalities. Negative COVID-19 PCR. Thank you for your consultation. Please call me if you have any questions. Rick Vasquez MD, FACP, FACC, FSCAI, FHRS, CCDS Interventional Cardiology Cardiac Electrophysiology Vascular Medicine and Endovascular Interventions Focused Exam Lactate Level 06/29/20 10:54: Lactic Acid Level 0.94 Stacey VASQUEZ MD Jul 01, 2020 13:56
[2020-07-01 16:18] VITALS: BP 134/59
[2020-07-01 19:51] VITALS: BP 157/79
[2020-07-01] MEDS: polyethylene glycoL POWDER 17 GM (MIRALAX) PACK PO PRN (20:24)
[2020-07-01] MEDS: DOCUSATE SODIUM 100 MG (COLACE) CAP PO PRN (20:24)
[2020-07-02] VITALS (18 sets, daily range): BP systolic 111–155; BP diastolic 54–79
[2020-07-02] MEDS: ENOXAPARIN 80 MG/0.8 ML (LOVENOX) SYR SC SCH ×2 (00:54→12:24)
[2020-07-02 03:14] LABS: BASOPHILS % (AUTO) 0 % (0-10); EOSINOPHILS # (AUTO) 0.2 10^3/uL (0.0-0.3); EOSINOPHILS % (AUTO) 4 % (0-10); HEMATOCRIT 31 % (40-54); HEMOGLOBIN 10.2 g/dL (13.3-17.7); LYMPHOCYTES # (AUTO) 1.3 10^3/uL (1.0-4.0); LYMPHOCYTES % (AUTO) 24 % (12-44); MEAN CORPUSCULAR HEMOGLOBIN 33 pg (25-34); MEAN CORPUSCULAR HGB CONC 33 g/dL (32-36); MEAN CORPUSCULAR VOLUME 102 fL (80-99); MEAN PLATELET VOLUME 10.1 fL (9.0-12.2); MONOCYTES # (AUTO) 0.7 10^3/uL (0.0-1.0); MONOCYTES % (AUTO) 13 % (0-12); NEUTROPHILS % (AUTO) 58 % (42-75); PLATELET COUNT 174 10^3/uL (130-400); WHITE BLOOD COUNT 5.2 10^3/uL (4.3-11.0)
[2020-07-02] MEDS ORDERED: CATHETER FLUSH 10 ML SYR IV PRN (08:30)
[2020-07-02] MEDS ORDERED: REGADENOSON 0.4 MG/5 ML SYR (LEXISCAN) IV ONE ×2 (09:01→10:15)
--- NOTE | 2020-07-02 09:34 | Cardiology Progress Note ---
Subjective Date Seen by Provider: Jul 02, 2020 Time Seen by Provider: 09:29 Subjective/Events-last exam patient was seen at bedside, sitting comfortably in bed. No new complaint. No active chest pain Review of Systems General: No Chills, No Night Sweats, No Fatigue, No Malaise, No Appetite, No Other HEENT: No Head Aches, No Visual Changes, No Eye Pain, No Ear Pain, No Dysphasia, No Sinus Congestion, No Post Nasal Drip, No Sore Throat, No Other Pulmonary: No Dyspnea, No Cough, No Pleuritic Chest Pain, No Other Cardiovascular: No: Chest Pain, Palpitations, Orthopnea, Paroxysmal Noc. Dyspnea, Edema, Lt Headedness, Other Focused Exam Lactate Level 06/29/20 10:54: Lactic Acid Level 0.94 Objective-Cardiology Exam Last Set of Vital Signs Vital Signs Capillary Refill : Less Than 3 Seconds I&O Intake and Output 07/02/20 00:00 Intake Total 1300 ml Output Total 701 ml Balance 599 ml Intake Oral 1300 ml Output Urine Total 701 ml # Voids 1 General: Alert, Oriented X3, Cooperative HEENT: Atraumatic, PERRLA Neck: Supple, No JVD, No Thyromegaly Lungs: Clear to Auscultation, Normal Air Movement Heart: Regular Rate, Normal S1, Normal S2, No Murmurs Abdomen: Normal Bowel Sounds, Soft, No Tenderness, No Hepatosplenomegaly, No Masses Extremities: No Clubbing, No Cyanosis, No Edema, Normal Pulses, No Tenderness/Swelling Skin: No Rashes, No Breakdown, No Significant Lesion Neuro: Normal Gait, Normal Speech, Strength at 5/5 X4 Ext, Normal Tone, Sensation Intact Psych/Mental Status: Mental Status NL, Mood NL Results Lab Laboratory Tests 07/02/20 02:52 A/P-Cardiology Admission Diagnosis Non-ST elevation myocardial infarction Coronary artery disease Hyperlipidemia Hyponatremia Assessment/Plan Non-ST elevation myocardial infarction, elevated troponin, trending down, patient is asymptomatic, he was scheduled for stress test this morning with Dr. Vasquez Coronary artery disease, history of multiple intervention reporting a total of 8 stents in the past. No reported acute EKG abnormality. Restart dual antiplate let therapy Recurrent rigor and chills, questionable sepsis,septic workup did not show any significant abnormality except for the elevated pro-calcitonin, receiving antibiotic and managed by primary care team Hyperlipidemia restart Crestor and monitor tolerance and response Hypertension, restart home medication and monitor tolerance and response Hyponatremia, managed by primary care team COVID-19 negative Hypothyroidism, managed and followed by primary care team TONA TAYLOR MD Jul 02, 2020 09:34
--- NOTE | 2020-07-02 09:39 | Progress Note - Hospitalist ---
Subjective HPI/CC On Admission Date Seen by Provider: Jul 02, 2020 Time Seen by Provider: 09:28 Genaro Patel is an 84-year-old male with past medical history of hypertension, diabetes, coronary artery disease, GERD, gout, prostate cancer, who presented with chills. He reports that he had been at home and was shaking. He reports having fever. He denies any shortness of breath or cough. He denies any dysuria. He denies any chest pain or palpitations. He denies any abdominal pain. He denies any nausea or vomiting. He denies any diarrhea. He has no other complaints or concerns. He does have a history of coronary artery disease and has required 8 stents. Subjective/Events-last exam Pt reports still feeling weak but better than on presentation. Was about to be wheeled down for stress test. Discussed with Dr Gomez and plan for stress this AM. Focused Exam Lactate Level 06/29/20 10:54: Lactic Acid Level 0.94 Objective Exam Vital Signs Vital Signs Date Time Temp Pulse Resp B/P (MAP) Pulse Ox O2 Delivery O2 Flow Rate FiO2 07/02/20 07:55 36.2 56 18 116/66 (83) 97 Room Air Capillary Refill : Less Than 3 Seconds General Appearance: No Apparent Distress, Chronically ill Respiratory: Lungs Clear, No Respiratory Distress Cardiovascular: Regular Rate, Rhythm, No Murmur Gastrointestinal: Normal Bowel Sounds, Non Tender, Soft Neurologic/Psychiatric: Alert, Oriented x3 Results/Procedures Lab Laboratory Tests 07/02/20 02:52 Patient resulted labs reviewed. Imaging: Reviewed Imaging Report Assessment/Plan Assessment and Plan Assess & Plan/Chief Complaint NSTEMI No chest pain EKG without acute changes Troponin as high as 2.2 and now down to 1.2 Cardiology consulted, appreciate assistance Continue ASA and Plavix and Metoprolol Continue Lisinopril ?bacteremia Elevated procalcitonin Strep pharyngitis Antibiotics given prior to cultures at OSH Strep swab positive Chest xray without consolidation Repeat chest xray again without consolidation UA unremarkable Continue IV abx T2DM SSI BS within goal DVT Prophylaxis: LUCILA Rodriguez MD Jul 02, 2020 09:39
--- NOTE | 2020-07-02 11:40 | Cardiology Stress Test Report ---
Stress Test Report Date of Procedure/Referring: Date of Procedure: Jul 02, 2020 PCP Brianna Fuchs MD Admitting Physician Benji Guillermo MD Indications: Coronary artery disease Baseline Heart Rate: 61 Baseline Blood Pressure: Blood Pressure Systolic: 114 Blood Pressure Diastolic: 63 Baseline Vitals Vital Signs Date Time Temp Pulse Resp B/P (MAP) Pulse Ox O2 Delivery O2 Flow Rate FiO2 06/29/20 03:45 37.0 68 18 142/63 (89) 96 Room Air Baseline EKG: Baseline EKG: normal sinus rhythm, right bundle branch block Summary After explaining the procedure to the patient, he signed a consent and then brought to the stress nuclear laboratory. Patient received 0.4 mg Lexiscan for stress test, ECG, heart rate and blood pressure were monitored continuously. Resting and stress dose of radio tracer were injected, imaging was acquired and reviewed in short axis, horizontal long axis and vertical long axis views. TID: 1.09 SSS: 12 SDS: 12 EF: 42 1. Patient tolerated Lexiscan well 2. Reversible ischemia involving the whole inferior wall and inferoseptum 3. Diffuse left ventricular hypokinesia, EF 42 percent TONA TAYLOR MD Jul 02, 2020 11:40
[2020-07-02] MEDS: lisINopril 40 MG (PRINIVIL) TABLET PO SCH (12:23)
[2020-07-02] MEDS: CLOPIDOGREL 75 MG (PLAVIX) TABLET PO SCH (12:23)
[2020-07-02] MEDS: meTOprolol TARTRATE 25 MG (LOPRESSOR) TABLET PO SCH ×2 (12:23→22:05)
[2020-07-02] MEDS: ASPIRIN E.C. 81 MG (ECOTRIN) TAB PO SCH (12:23)
[2020-07-02] MEDS: CATHETER FLUSH 10 ML SYR IV SCH ×2 (14:12→22:07)
[2020-07-02] MEDS: AZITHROMYCIN INJECTION 500 MG in NS (IVPB) 250 ML IV SCH ×2 (14:14→22:02)
[2020-07-02] MEDS: cefTRIAXone FOR IV USE 1,000 MG in WATER (STERILE) FOR INJECTION 10 ML IV SCH ×2 (14:14→22:06)
[2020-07-02] MEDS ORDERED: NS IV 1000 ML 1,000 ML ONE (15:05)
[2020-07-02] MEDS ORDERED: LIDOCAINE 1% INJ 20 ML 20 ML VIAL ONE (15:05)
[2020-07-02] MEDS ORDERED: HEParin (CATH LAB) 2,000 ML IV ONE (15:05)
[2020-07-02] MEDS ORDERED: MIDAZOLAM 5 MG/5 ML (VERSED) VIAL ONE (15:37)
[2020-07-02] MEDS ORDERED: fentaNYL INJECTION 100 MCG/2 ML AMP ONE (15:38)
[2020-07-02] MEDS ORDERED: HEParin 1000 UNIT/ML (10ML VIAL) FOR BOLUS ONE (16:14)
[2020-07-02] MEDS ORDERED: CLOPIDOGREL 300 MG (PLAVIX) TABLET PO ONE (17:00)
[2020-07-02] MEDS ORDERED: ASPIRIN 325 MG (5 GR) TABLET ONE (17:00)
[2020-07-02] MEDS ORDERED: PATIENT MAY USE OWN MEDS, ALL PO SCH (17:00)
--- NOTE | 2020-07-02 17:05 | Cardiac Cath Report ---
Cardiac Cath Report Physician (s)/Rotor Assembler (s) Physician TONA TAYLOR MD Pre-Procedure Diagnosis Pre-Procedure Diagnosis: CAD Post-Procedure Note Procedure Start Date: Jul 02, 2020 Name of Procedure: [facility] PTCA to RCA Findings/Procedure Note PROCEDURE NOTE: 84 years old gentleman with history of coronary artery disease multiple intervention, admitted with non-ST elevation myocardial infarction, and was scheduled for stress test which was abnormal, not for cardiac catheterization possible PTCA. After explaining the procedure to the patient, all pros and cons were explained, all questions were answered. The patient signed the consent and then he was placed on the cardiac catheterization laboratory. Groin was prepped SL fashion local anesthesia was used. Sheath placed in the right femoral artery. Brodie right and left catheter were used to access the coronary system. Pigtail was used to access the left ventricular cavity. Left ventriculogram was not done, pressure was measured and Patient received 6000 units of heparin, FR guide was used and AR guide was used, had significant difficulties advancing the BMW wire across the tortuosity and the multiple stents in the right coronary artery, I tried mary wire without success. Then I used the balloon for support to advance the wire. Advanced TREK 3 x 20 balloon, did multiple inflation the proximal and mid RCA with excellent results. At the end of the procedure the sheath was removed. Closure device was used FINDINGS: Hemodynamics LV 165/60, end-diastolic pressure of 16 Aorta 163/65 mean of 102 ANATOMY: Left Main is free of obstructive disease Left Anterior Descending has multiple stents, moderate disease distally, the first diagonal artery has severe stenosis proximally, very small artery Left Circumflex is moderate in size with multiple patent stents Right Coronory Artery is dominant artery with multiple stents, there is 70 percent stenosis in the midportion 50 percent stenosis distally successful but complex balloon angioplasty to the proximal and mid in-stent restenosis using 3.0 x 20 mm balloon with excellent results LV Gram was not done, pressure was measured CONCLUSION: 1. 70 percent in-stent restenosis in the mid right coronary artery, successful but complex balloon angioplasty to the proximal and mid in-stent restenosis in the right coronary artery with excellent results using 3.0 x 20 mm trek balloon, 50 percent distal right coronary artery in-stent restenosis. Treated conservatively 2. Severe first diagonal artery stenosis, very small artery not amendable to intervention 3. Moderate disease in the LAD with multiple patent stent, moderate disease in the circumflex artery with multiple patent stent site 4. Normal left ventricular end-diastolic pressure DISCUSSION AND RECOMMENDATION: Medical therapy is recommended, the lesion in the diagonal artery is involved treatable due to the size of the artery. Continue on aspirin and Plavix Anesthesia Type: Conscious Sedation Estimated blood loss (mL): 35 ml Contrast Amount: 81 ml Total Radiation Dose: 1985 mGy Post-Procedure Diagnosis (1) NSTEMI (non-ST elevated myocardial infarction) (2) HTN (hypertension) TONA TAYLOR MD Jul 02, 2020 5:05 pm
--- NOTE | 2020-07-02 17:33 | Physician Query Clarification ---
"Physician Query-General Query to Physician: The medical record reflects the following clinical scenario: History/Risk factors: Strep pharyngitis, Possible RLL PNA Clinical Findings: PCT 32.45, WBC 15.1, Bands 13%, NSTEMI (type II), Fever at OSH, Treatment: IV azithromycin and Ceftriaxone, Question: Do you agree with the impression of Severe Sepsis per Christina Matos? If you agree, please document in Progress Notes or Discharge Summary. 1. Yes; will document Severe Sepsis in the Progress Notes 2. No; will continue to document likely Bacteremia in the Progress Notes 3. Other; will document explanation of clinical findings 4. Clinically undetermined; no explanation for clinical findings Please remember a lack of response to the above will prompt a phone page by CDI/coding staff. In responding to this query, please exercise your independent professional judgment. The purpose of this communication is to more accurately reflect the complexity of your patients condition. The fact that a question is asked does not imply that any particular answer is desired or expected. Thank you for timely response to this clarification. Lakshmi Grace, MSN, RN RN Specialist-Clinical Doc Improvement CD -Health Info Mgmt Operations [address] [facility] t: [phone] | f: [phone] If you are unable to reach me at my extension, I may be working from home. Please contact me at [phone] PHYSICIAN RESPONSE: Based on the clinical findings in the record, please respond to the query above on this document as an addendum. Physician Response: Physician Response I did not see patient until 4 days into hospitalization and much improved. Defer to admitting physician for assessment at that time. If you have questions please contact: Digital Forensics Examiner: Ext: Thank you for your time and cooperation. Clinical Shampoo Assistant/Digital Forensics Examiner This is a permanent part of the medical record LAKSHMI GRACE Jul 02, 2020 17:33 LUCILA HALEY MD Jul 02, 2020 19:06"
[2020-07-02] MEDS: NS IV 1000 ML 1,000 ML IV SCH (18:07)
[2020-07-02] MEDS ORDERED: AZITHROMYCIN INJECTION 500 MG in NS (IVPB) 250 ML IV SCH (21:00)
[2020-07-02] MEDS: ROSUVASTATIN 10 MG (CRESTOR) TABLET PO SCH (22:05)
[2020-07-02] MEDS: lisINopril 5 MG (PRINIVIL) TABLET PO SCH (22:05)
[2020-07-03] VITALS (7 sets, daily range): BP systolic 114–142; BP diastolic 48–67
--- NOTE | 2020-07-03 00:40 | NUR ---
DR TAYLOR CALLED REGARDING MIDNIGHT LOVENOX, TO ASK IF IT SHOULD BE ADMINISTERED SINCE PT HAD CARDIAC CATHETERIZATION 07/02, DR ORDERED TO DC LOVENOX.
[2020-07-03] MEDS: ENOXAPARIN 80 MG/0.8 ML (LOVENOX) SYR SC SCH (01:53)
[2020-07-03 04:27] LABS: BASOPHILS % (AUTO) 0 % (0-10); EOSINOPHILS # (AUTO) 0.1 10^3/uL (0.0-0.3); EOSINOPHILS % (AUTO) 2 % (0-10); HEMATOCRIT 31 % (40-54); LYMPHOCYTES # (AUTO) 1.1 10^3/uL (1.0-4.0); LYMPHOCYTES % (AUTO) 19 % (12-44); MEAN CORPUSCULAR HEMOGLOBIN 33 pg (25-34); MEAN CORPUSCULAR HGB CONC 32 g/dL (32-36); MEAN CORPUSCULAR VOLUME 101 fL (80-99); MONOCYTES # (AUTO) 0.7 10^3/uL (0.0-1.0); MONOCYTES % (AUTO) 13 % (0-12); NEUTROPHILS # (AUTO) 3.6 10^3/uL (1.8-7.8); NEUTROPHILS % (AUTO) 65 % (42-75); PLATELET COUNT 204 10^3/uL (130-400); WHITE BLOOD COUNT 5.5 10^3/uL (4.3-11.0)
[2020-07-03 04:42] LABS: CHLORIDE 98 MMOL/L (98-107); POTASSIUM 4.2 MMOL/L (3.6-5.0); SODIUM 129 MMOL/L (135-145)
[2020-07-03 04:43] LABS: CALCIUM 7.8 MG/DL (8.5-10.1)
[2020-07-03 04:44] LABS: GLUCOSE 188 MG/DL (70-105)
[2020-07-03 04:45] LABS: CARBON DIOXIDE 22 MMOL/L (21-32)
[2020-07-03 04:48] LABS: CREATININE SERUM 0.93 MG/DL (0.60-1.30); GFR ESTIMATED > 60
[2020-07-03 04:49] LABS: BUN/CREATININE RATIO 19
[2020-07-03] MEDS: CATHETER FLUSH 10 ML SYR IV SCH ×3 (06:02→20:49)
[2020-07-03] MEDS: NS IV 1000 ML 1,000 ML IV SCH (06:02)
[2020-07-03] MEDS: meTOprolol TARTRATE 25 MG (LOPRESSOR) TABLET PO SCH ×2 (08:06→20:00)
[2020-07-03] MEDS: ASPIRIN E.C. 81 MG (ECOTRIN) TAB PO SCH (08:06)
[2020-07-03] MEDS: CLOPIDOGREL 75 MG (PLAVIX) TABLET PO SCH (08:06)
[2020-07-03] MEDS: lisINopril 5 MG (PRINIVIL) TABLET PO SCH ×2 (08:06→20:00)
[2020-07-03] MEDS: lisINopril 40 MG (PRINIVIL) TABLET PO SCH (08:06)
--- NOTE | 2020-07-03 09:10 | Cardiology Progress Note ---
Subjective Date Seen by Provider: Jul 03, 2020 Time Seen by Provider: 09:08 Subjective/Events-last exam patient is sitting in a chair, still complaining of generalized weakness, denied any chest pain Review of Systems General: No Chills, No Night Sweats; Fatigue, Malaise; No Appetite, No Other HEENT: No Head Aches, No Visual Changes, No Eye Pain, No Ear Pain, No Dys phasia, No Sinus Congestion, No Post Nasal Drip, No Sore Throat, No Other Pulmonary: No Dyspnea, No Cough, No Pleuritic Chest Pain, No Other Cardiovascular: No: Chest Pain, Palpitations, Orthopnea, Paroxysmal Noc. Dyspnea, Edema, Lt Headedness, Other Objective-Cardiology Exam Last Set of Vital Signs Vital Signs 07/03/20 08:03 Temp 36.7 Pulse 60 Resp 18 B/P (MAP) 121/48 (72) Pulse Ox 95 O2 Delivery Room Air Capillary Refill : Less Than 3 Seconds I&O Intake and Output 07/03/20 00:00 Intake Total 600 ml Output Total 480 ml Balance 120 ml Intake Oral 600 ml Output Urine Total 480 ml General: Alert, Oriented X3, Cooperative HEENT: Atraumatic, PERRLA Neck: Supple, No JVD, No Thyromegaly Lungs: Clear to Auscultation, Normal Air Movement Heart: Regular Rate, Normal S1, Normal S2, No Murmurs Abdomen: Normal Bowel Sounds, Soft, No Tenderness, No Hepatosplenomegaly, No Masses Extremities: No Clubbing, No Cyanosis, No Edema, Normal Pulses, No Tenderness/Swelling Skin: No Rashes, No Breakdown, No Significant Lesion Neuro: Normal Gait, Normal Speech, Strength at 5/5 X4 Ext, Normal Tone, Sensation Intact Psych/Mental Status: Mental Status NL, Mood NL Results Lab Laboratory Tests 07/03/20 04:00 A/P-Cardiology Admission Diagnosis Non-ST elevation myocardial infarction Coronary artery disease Hyperlipidemia Hyponatremia (1) NSTEMI (non-ST elevated myocardial infarction) Status: Acute (2) HTN (hypertension) Status: Chronic Assessment/Plan Non-ST elevation myocardial infarction, cardiac catheterization with balloon angioplasty to the right coronary artery was done on July 02, 2020 Coronary artery disease, history of multiple intervention reporting a total of 8 stents in the past. No reported acute EKG abnormality. cardiac catheterization was carried out on July 02, 2020 showing severe second diagonal artery stenosis, small artery not amendable to intervention, had moderate to severe in- stent restenosis in the right coronary artery, patient had multiple overlapping stent, required complex intervention with balloon angioplasty for in-stent restenosis and significant improvement. Currently not having any active chest pain. Continue on aspirin and Plavix as an outpatient Recurrent rigor and chills, questionable sepsis,septic workup did not show any significant abnormality except for the elevated pro-calcitonin, receiving antibiotic and managed by primary care team Hyperlipidemia restart Crestor and monitor tolerance and response Hypertension, restart home medication and monitor tolerance and response Hyponatremia, managed by primary care team COVID-19 negative Hypothyroidism, managed and followed by primary care team Yvonne for transfer to medical floor TONA TAYLOR MD Jul 03, 2020 09:10
--- NOTE | 2020-07-03 09:11 | Progress Note - Hospitalist ---
Subjective HPI/CC On Admission Date Seen by Provider: Jul 03, 2020 Time Seen by Provider: 09:07 Genaro Patel is an 84-year-old male with past medical history of hypertension, diabetes, coronary artery disease, GERD, gout, prostate cancer, who presented with chills. He reports that he had been at home and was shaking. He reports having fever. He denies any shortness of breath or cough. He denies any dysuria. He denies any chest pain or palpitations. He denies any abdominal pain. He denies any nausea or vomiting. He denies any diarrhea. He has no other complaints or concerns. He does have a history of coronary artery disease and has required 8 stents. Subjective/Events-last exam Pt reports feeling much better. Was up in chair already and shaved. Had stent yesterday. No complaints at this time. Objective Exam Vital Signs Vital Signs Date Time Temp Pulse Resp B/P (MAP) Pulse Ox O2 Delivery O2 Flow Rate FiO2 07/03/20 08:03 36.7 60 18 121/48 (72) 95 Room Air Capillary Refill : Less Than 3 Seconds General Appearance: No Apparent Distress, WD/WN Respiratory: Lungs Clear, No Respiratory Distress Cardiovascular: Regular Rate, Rhythm, No Murmur Gastrointestinal: Normal Bowel Sounds, Non Tender, Soft Neurologic/Psychiatric: Alert, Oriented x3 Results/Procedures Lab Laboratory Tests 07/03/20 04:00 Patient resulted labs reviewed. Imaging: Reviewed Imaging Report Assessment/Plan Assessment and Plan Assess & Plan/Chief Complaint NSTEMI No chest pain EKG without acute changes Troponin as high as 2.2 and now down to 1.2 Cardiology consulted, appreciate assistance Continue ASA and Plavix and Metoprolol Continue Lisinopril s/p cath on 07/02 and stent deployted- doing much better PT/OT ?bacteremia Elevated procalcitonin Strep pharyngitis Antibiotics given prior to cultures at OSH Strep swab positive- ?colonization Chest xray clear x2 UA unremarkable Continue IV abx for now to complete course T2DM SSI BS within goal DVT Prophylaxis: LUCILA Rodriguez MD Jul 03, 2020 09:11
--- NOTE | 2020-07-03 11:44 | Occupational Therapy Eval ---
OT Evaluation-General/PLF Medical Diagnosis Admission Date Jun 29, 2020 at 03:39 Medical Diagnosis: NSTEMI; stent placement Onset Date: Jun 22, 2020 Therapy Diagnosis Therapy Diagnosis: Decreased ADL status Precautions Precautions/Isolations: Fall Prevention, Standard Precautions Referral Referral Reason: Activity Tolerance, Self Care, Evaluation/Treatment, Strengthening/ROM Medical History Pertinent Medical History: CAD, DM, GERD Additional Medical History HTN, DM, CAD, GERD, gout, prostate Ca, 8 stents prior Current History fever/ chills/ shivering intensely per pt. EMS to [place] and brought to [facility]. COVID negative. NSTEMI, stent placed 07/02 Reviewed History: Yes Social History Home: Single Level Current Living Status: Children Entry Into Home: Stairs With Railing Steps Into Home: 3 Pt lives with son. Son works, however, on the road 11 days and is back home 2 days. Pt states his neighbor is willing to assist in meals/ checking in on pt until son returns. ADL-Prior Level of Function SCALE: Activities may be completed with or without assistive devices. 4-Lvxrsgviyc-ctlbwjj completes the activity by him/herself with no assistance from a helper. 5-Set-up or Clean-up Assistance-helper sets up or cleans up; patient completes activity. [place] assists only prior to or following the activity. 4-Supervision or Touching Assistance-helper provides verbal cues and/or touching/steadying and/or contact guard assistance as patient completes activity. Assistance may be provided throughout the activity or intermittently. 3-Partial/Moderate Assistance-helper does LESS THAN HALF the effort. [place] lift s, holds or supports trunk or limbs, but provides less than half the effort. 2-Substantial/Maximal Assistance-helper does MORE THAN HALF the effort. [place] lifts or holds trunk or limbs and provides more than half the effort. 8-Gwgmhuqhe-njmefa does ALL the effort. Patient does none of the effort to complete the activity. Or, the assistance of 2 or more helpers is required for the patient to complete the activity. If activity was not attempted, code reason: 7-Patient Refused. 9-Not Applicable-not attempted and the patient did not perform the activity before the current illness, exacerbation or injury. 10-Not Attempted due to Environmental Limitations-(lack of equipment, weather restraints, etc.). 88-Not Attempted due to Medical Conditions or Safety Concerns. ADL PLOF Comments IND with use of SPC within community. Self Care: Independent Functional Cognition: Independent DME/Equipment: Grab Bars, Tub/Shower DME/Equipment Comments Pt gets into tub to soak for bathing. 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 Denies pain, agrees to OT eval/ treat. Pt's HR jumps 60's-90's throughout. Nursing notified of a fib. Mental Status/Objective Patient Orientation: Person, Place, Situation, Normal For Age Attachments: Telemetry Current Glasses/Contacts: Yes Hearing Aids: No Dentures/Partials: Yes Hand Dominance: Right Upper Extremity ROM WFL BUE Upper Extremity Coordination WFL BUE Upper Extremity Sensation WFL BUE Upper Extremity Strength WFL BUE ADL-Treatment Eating (QC): 6 Shower/Bathe Self (QC): 4 (SBA all tasks. Sit to stand SBA and completes bottom care in stance with no LOB/ no use of AD. ) Upper Body Dressing (QC): 5 Lower Body Dressing (QC): 4 (SBA in stance to don undergarments over hips. ) On/Off Footwear (QC): 6 (IND EOB/ in recliner. ) Toileting Hygiene (QC): 4 (SBA) Other Treatments Pt denies pain. Bed mob supine to sit with CGA. Pt sit to stand and ambulates with SPC to recliner with SBA. Pt agrees to sponge bath, completing as outlined. Pt expresses he is home alone most of the time, though son has Ca and is going to be home for 10 straight weeks starting July. Pt states his neighbor is willing to supervise/ assist in IADLs including cooking, though is interested in meals on wheels. Pt is educated on OT purpose and no need for skilled tx at this time. Pt agrees, all needs met, call light in reach, pt in recliner with blanket and nursing notified of afib during tx. Education OT Patient Education: Correct positioning, Progress toward Goal/Update tx plan, Purpose of tx/functional activities, Safety issues Teaching Recipient: Patient Teaching Methods: Demonstration, Discussion Response to Teaching: Verbalize Understanding, Return Demonstration OT Long-Term Goals Sanitarian Goals 1=Demonstrate adherence to instructed precautions during ADL tasks. 2=Patient will verbalize/demonstrate understanding of assistive devices/modifications for ADL. 3=Patient will improve strength/tolerance for activity to enable patient to perform ADL's. OT Education/Plan Problem List/Assessment Assessment: No Skilled OT Needs ID'd Discharge Recommendations Plan/Recommendations: Discharge/Goals Met Therapy Discharge Recommendati: Intermittent Supervision, Meals on Wheels, Home & Family Treatment Plan/Plan of Care Treatment,Training & Education: Yes Patient would benefit from OT for education, treatment and training to promote independence in ADL's, mobility, safety and/or upper extremity function for ADL's. Plan of Care: OTHER (eval and d/c. ) Treatment Duration: Jul 03, 2020 Frequency: 1 time per week (eval only) Time/GCodes Start Time: 10:38 Stop Time: 11:00 Total Time Billed (hr/min): 22 Billed Treatment Time 1, EVM (22) d/c. MUMTAZ CARNEY OTR Jul 03, 2020 11:44
--- NOTE | 2020-07-03 14:06 | Physical Therapy Evaluation ---
PT Evaluation-General Medical Diagnosis Admission Date Jun 29, 2020 at 03:39 Medical Diagnosis: NSTEMI; stent placement Onset Date: Jun 22, 2020 Therapy Diagnosis Therapy Diagnosis: debility Precautions Precautions/Isolations: Fall Prevention, Standard Precautions Referral Physician: Jef Reason for Referral: Evaluation/Treatment Medical History Pertinent Medical History: CAD, DM, GERD Current History s/p heart cath (07/02/20) Reviewed History: Yes Social History Home: Single Level Current Living Status: Children Entry Into Home: Stairs With Railing PT Steps Into Home: 3 Prior Prior Level of Function SCALE: Activities may be completed with or without assistive devices. 2-Cizeyyghfa-alhwwii completes the activity by him/herself with no assistance from a helper. 5-Set-up or Clean-up Assistance-helper sets up or cleans up; patient completes activity. [place] assists only prior to or following the activity. 4-Supervision or Touching Assistance-helper provides verbal cues and/or touching/steadying and/or contact guard assistance as patient completes activity. Assistance may be provided throughout the activity or intermittently. 3-Partial/Moderate Assistance-helper does LESS THAN HALF the effort. [place] l ifts, holds or supports trunk or limbs, but provides less than half the effort. 2-Substantial/Maximal Assistance-helper does MORE THAN HALF the effort. [place] lifts or holds trunk or limbs and provides more than half the effort. 4-Ljteosdyq-uptldg does ALL the effort. Patient does none of the effort to complete the activity. Or, the assistance of 2 or more helpers is required for t he patient to complete the activity. If activity was not attempted, code reason: 7-Patient Refused. 9-Not Applicable-not attempted and the patient did not perform the activity before the current illness, exacerbation or injury. 10-Not Attempted due to Environmental Limitations-(lack of equipment, weather restraints, etc.). 88-Not Attempted due to Medical Conditions or Safety Concerns. Bed Mobility: 6 Transfers (B,C,W/C): 6 Gait: 6 Prior Devices Use: Other-see list below Prior Device Use: cane PT Evaluation-Current Subjective Patient reports he is feeling much better on this date. Objective Patient Orientation: Normal For Age ROM/Strength ROM Lower Extremities bilateral LE WFL Strength Lower Extremities 4/5 grossly bilateral LE Integumentary/Posture Integumentary refer to nursing notes Bowel Incontinence: No Bladder Incontinence: No Posture kyphotic Neuromuscular (Tone, Coordination, Reflexes) grossly intact with all Sensory Vision: Wears Glasses Hand Dominance: Right Transfers Roll Left to Right (QC): 6 Sit to Lying (QC): 6 Lying to Sitting/Side of Bed(Q: 6 Sit to Stand (QC): 4 Gait Does the Patient Walk?: Yes Mode of Locomotion: Walk Anticipated Mode of Locomotion: Walk Walk 10 feet (QC): 4 Walk 50 ft with 2 Turns(QC): 4 Walk 150 ft (QC): 4 Distance: 400' Gait Assistive Device: FWW Comments/Gait Description attempted to use a cane, however, is more stable and safe with FWW Balance Sitting Static: Normal Sitting Dynamic: Normal Standing Static: Normal Standing Dynamic: Normal Assessment/Needs 84 y.o. male, will be seen short term by skilled PT to address functional mobility to ensure safe return to home at maximum LOF. Rehab Potential: Fair PT Short Term Goals Short Term Goals Time Frame: Jul 06, 2020 Roll Left & Right: 6 Sit to lyin Lying to sitting on side of be: 6 Sit to stand: 6 Chair/ukv-ib-ejpgt transfer: 6 Toilet transfer: 6 Walk 10 feet: 6 Walk 50 feet with two turns: 6 Walk 150 feet: 6 1 step (curb): 6 4 steps: 6 PT Plan Treatment/Plan Treatment Plan: Continue Plan of Care Treatment Plan: Education, Functional Activity Nicole, Gait, Safety, Therapeutic Exercise, Transfers Treatment Duration: Jul 06, 2020 Frequency: 4 times per week Estimated Hrs Per Day: .25 hour per day Patient and/or Family Agrees t: Yes Time/GCodes Time In: 1330 Time Out: 1350 Total Billed Treatment Time: 20 Total Billed Treatment 1 visit EVModC 20 min FRANCISCA BRANCH PT Jul 03, 2020 14:06
--- NOTE | 2020-07-03 15:21 | NUR ---
"RD ASSESSMENT PMHx: HTN; DM; CAD; GERD; gout; CA(prostate); PT INTERACTION: Pt was awake and pleasant during nutrition assessment. Pt states current appetite is pretty good. Note avg PO intake 89% x2d, per chart review. Pt states following a regular diet at home, and has no issues with chewing/swallowing food. Pt states some recent issues with constipation, and that his last BM was 07/02. Note pt currently on bowel regimen of colace PRN, and miralax PRN, per chart review. Pt states no recent wt changes. Note unable to determine recent wt hx, per chart review. Pt states current DM management is pretty good. Note unable to determine recent HbA1c, per chart review. ABNORMAL NUTRITION-RELATED LAB VALUES LOW: Na 129; Ca 7.8; HIGH: glu 188; Est. kcal needs: 7148-3126 kcal | 20-25 kcal/kg Est. Pro needs: 64-80 g Pro | 0.8-1.0 g Pro/kg PES STATEMENT: Given current appetite and PO intake, no nutrition diagnosis at this time (NO-1.1). INTERVENTION: Continue with current diet order of CHO 60g/m 1snack diet. Offered diet education on DM management, but pt declined. Will attempt to offer again prior to discharge. Will continue to follow and reassess as pt needs, intake, and status change. Johnnie MATTHEWS, MS RD LD [phone] cell"
[2020-07-03] MEDS: ROSUVASTATIN 10 MG (CRESTOR) TABLET PO SCH (20:00)
[2020-07-03] MEDS: cefTRIAXone FOR IV USE 1,000 MG in WATER (STERILE) FOR INJECTION 10 ML IV SCH (20:00)
[2020-07-03] MEDS: polyethylene glycoL POWDER 17 GM (MIRALAX) PACK PO PRN (20:01)
[2020-07-03] MEDS ORDERED: AZITHROMYCIN INJECTION 500 MG in NS (IVPB) 250 ML IV SCH (21:00)
[2020-07-04 03:02] VITALS: BP 122/58
[2020-07-04] MEDS: CATHETER FLUSH 10 ML SYR IV SCH ×2 (03:51→13:31)
[2020-07-04 07:23] VITALS: BP 143/60
[2020-07-04] MEDS: ASPIRIN E.C. 81 MG (ECOTRIN) TAB PO SCH (08:06)
[2020-07-04] MEDS: CLOPIDOGREL 75 MG (PLAVIX) TABLET PO SCH (08:07)
[2020-07-04] MEDS: lisINopril 40 MG (PRINIVIL) TABLET PO SCH (08:07)
[2020-07-04] MEDS: meTOprolol TARTRATE 25 MG (LOPRESSOR) TABLET PO SCH (08:07)
[2020-07-04] MEDS: lisINopril 5 MG (PRINIVIL) TABLET PO SCH (08:09)
[2020-07-04] MEDS: polyethylene glycoL POWDER 17 GM (MIRALAX) PACK PO PRN (08:19)
[2020-07-04] MEDS ORDERED: CLOP75TA28 PO (08:22)
[2020-07-04] MEDS ORDERED: METO-333 PO (08:22)
--- NOTE | 2020-07-04 08:28 | Discharge Summary ---
Diagnosis/Chief Complaint Date of Admission Jun 29, 2020 at 03:39 Date of Discharge Discharge Date: Jul 04, 2020 Admission Diagnosis NSTEMI Primary Care Benji Guillermo MD Discharge Diagnosis (1) NSTEMI (non-ST elevated myocardial infarction) Status: Acute (2) HTN (hypertension) Status: Chronic Discharge Summary Discharge Physical Exam Allergies: Coded Allergies: No Known Drug Allergies (Unverified , 02/04/11) Vitals & I&Os Vital Signs Date Time Temp Pulse Resp B/P (MAP) Pulse Ox O2 Delivery O2 Flow Rate FiO2 07/04/20 07:23 36.4 66 18 143/60 (87) 96 Room Air Hospital Course Labs (last 24 hrs) Microbiology 06/30/20 Blood Culture - Preliminary, Resulted No growth Patient resulted labs reviewed. Imaging: Reviewed Imaging Report Discharge Home Medications: Active Scripts Active Metoprolol Tartrate 25 Mg Tablet 12.5 Mg PO BID Clopidogrel (Clopidogrel Bisulfate) 75 Mg Tablet 75 Mg PO DAILY Reported Vitamin D3 (Cholecalciferol (Vitamin D3)) 25 Mcg Capsule 25 Mcg PO TID Vitamin B-12 (Cyanocobalamin (Vitamin B-12)) 1,000 Mcg Tablet 1,000 Mcg PO DAILY Aspirin EC (Aspirin) 81 Mg Tablet.dr 81 Mg PO HS Levothyroxine Sodium 75 Mcg Tablet 75 Mcg PO DAILY Allopurinol 300 Mg Tablet 300 Mg PO DAILY Flomax (Tamsulosin HCl) 0.4 Mg Cap 0.4 Mg PO 1700 Furosemide 20 Mg Tablet 20 Mg PO Q48H Rosuvastatin Calcium 10 Mg Tablet 10 Mg PO HS Lisinopril 5 Mg Tablet 5 Mg PO BID Repaglinide 1 Mg Tablet 1 Mg PO 1700 PRN Repaglinide 1 Mg Tablet 2 Mg PO DAILY TAKES 2 (1MG) TABS Fluoxetine HCl 20 Mg Capsule 20 Mg PO 1700 Ammonium Lactate 385 Gm Cream..g. 1 Applic TOP DAILY APPLY TO ARMS AND LEGS Triamcinolone Acetonide 0.5% Ointment (Triamcinolone Acetonide) 15 Gm Oint 1 Appful TOP PRN PRN Doxycycline Hyclate 100 Mg Capsule 100 Mg PO BID FILLED 06-19-2020 #20/10 DAY SUPPLY Instructions to patient/family Please see electronic discharge instructions given to patient. LUCILA HALEY MD Jul 04, 2020 08:28
--- NOTE | 2020-07-04 09:04 | Physical Therapy Daily Note ---
PT Daily Note-Current Subjective Patient in recliner pre tx, agrees to PT, has unrated pain in right foot and left shoulder he says due to arthritis. Appearance Patient in recliner post tx with nurse call, phone, tray, all needs met. Mental Status Patient Orientation: Person, Place, Situation Transfers SCALE: Activities may be completed with or without assistive devices. 9-Emjkiktdco-yfdrzye completes the activity by him/herself with no assistance from a helper. 5-Set-up or Clean-up Assistance-helper sets up or cleans up; patient completes activity. [place] assists only prior to or following the activity. 4-Supervision or Touching Assistance-helper provides verbal cues and/or touching/steadying and/or contact guard assistance as patient completes activity. Assistance may be provided throughout the activity or intermittently. 3-Partial/Moderate Assistance-helper does LESS THAN HALF the effort. [place] lifts, holds or supports trunk or limbs, but provides less than half the effort. 2-Substantial/Maximal Assistance-helper does MORE THAN HALF the effort. [place] lifts or holds trunk or limbs and provides more than half the effort. 6-Ylftzxunu-hupwjq does ALL the effort. Patient does none of the effort to complete the activity. Or, the assistance of 2 or more helpers is required for the patient to complete the activity. If activity was not attempted, code reason: 7-Patient Refused. 9-Not Applicable-not attempted and the patient did not perform the activity before the current illness, exacerbation or injury. 10-Not Attempted due to Environmental Limitations-(lack of equipment, weather restraints, etc.). 88-Not Attempted due to Medical Conditions or Safety Concerns. Sit to Stand (QC): 4 Chair/Ekf-by-Mcwsp Xfer(QC): 4 SBA Gait Training Distance: 300' Walk 10 feet (QC): 4 Walk 50 ft with 2 Turns(QC): 4 Walk 150 ft (QC): 4 Gait Assistive Device: FWW SBA, moderate gait speed, no LOB or unsteadiness Exercises Seated Therapy Exercises: Ankle pumps, Long arc quads Seated Reps: 20 Treatments transfers, ambulation, LE exercise Assessment Current Status: Fair Progress SBA with transfers and ambulation PT Short Term Goals Short Term Goals Time Frame: Jul 06, 2020 Roll Left & Right: 6 Sit to lyin Lying to sitting on side of be: 6 Sit to stand: 6 Chair/dlz-zb-xjynh transfer: 6 Toilet transfer: 6 Walk 10 feet: 6 Walk 50 feet with two turns: 6 Walk 150 feet: 6 1 step (curb): 6 4 steps: 6 PT Plan Problem List Problem List: Activity Tolerance, Functional Strength, Safety, Balance, Gait, Transfer Treatment/Plan Treatment Plan: Continue Plan of Care Treatment Plan: Education, Functional Activity Nicole, Gait, Safety, Therapeutic Exercise, Transfers Treatment Duration: Jul 06, 2020 Frequency: 4 times per week Estimated Hrs Per Day: .25 hour per day Patient and/or Family Agrees t: Yes Safety Risks/Education Patient Education: Gait Training, Transfer Techniques, Correct Positioning, S afety Issues Teaching Recipient: Patient Teaching Methods: Demonstration, Discussion Response to Teaching: Reinforcement Needed Time/GCodes Time In: 0830 Time Out: 0839 Total Billed Treatment Time: 9 Total Billed Treatment 1 visit GT 9' TIANA PORRAS PT Jul 04, 2020 09:04
--- NOTE | 2020-07-04 10:29 | D/C HH Face to Face Order ---
D/C Face to Face Orders Instructions for Patient [facility], Patient Instructions/FollowUp: Please continue to take your medications as written. Please follow up with Dr. Gomez and Dr Guillermo to follow up this hospital stay. Please continue to socially distance and wear a mask to help slow the spread of COVID19. Physician to follow Patient: Dr Guillermo Discharge Diet for Home: Cardiac Diet Patient Data-Allergies,Ht & Wt Patient Allergies: Coded Allergies: No Known Drug Allergies (Unverified , 02/04/11) Home Health Need/Face to Face Date of Face to Face: Jul 04, 2020 Clinical Findings: Generalized weakness and fatigue, Instability I have seen Pt gzjq-rr-zowx: Yes Discharged To: Home Diagnosis/Conditions: NSTEMI with stent, sepsis Patient is Homebound due to: Karina fall risk due to instabilty Homebound Status Due to the above stated illness, injury or surgical procedure (medical condition or diagnosis) and associated clinical findings, the patient is homebound because of his/her inability to leave home except with aid of a supportive device and/or person AND leaving the home requires a considerable and taxing effort or is medically contraindicated. Pt req the following assistanc: Aid of another person, Walker Home Health Nursing Orders Home Health Services Order: Nursing Services, Physical Therapy-Evaluate & Treat Therapy Orders Therapy Orders: Physical Therapy, PT to assess for OT Therapy Specific Orders: Eval assistive deivces, Teach enviro modifications/safety, Gait training, Increase strength/endurance Certify Stmt I certify that this patient is under my care and that I, a nurse practitioner or a physician; a language assistant working with me, had a face to face encounter that - meets the physician face to face encounter requirements with this patient as dated. LUCILA HALEY MD Jul 04, 2020 10:29
--- NOTE | 2020-07-04 10:44 | Cardiology Progress Note ---
Subjective Date Seen by Provider: Jul 04, 2020 Time Seen by Provider: 10:43 Subjective/Events-last exam Patient was seen at bedside, sitting comfortably, feeling better, exercised earlier today and yesterday with the physical therapist and feeling better Review of Systems General: No Chills, No Night Sweats; Fatigue, Malaise; No Appetite, No Other HEENT: No Head Aches, No Visual Changes, No Eye Pain, No Ear Pain, No Dysphasia, No Sinus Congestion, No Post Nasal Drip, No Sore Throat, No Other Pulmonary: No Dyspnea, No Cough, No Pleuritic Chest Pain, No Other Cardiovascular: No: Chest Pain, Palpitations, Orthopnea, Paroxysmal Noc. Dyspnea, Edema, Lt Headedness, Other Objective-Cardiology Exam Last Set of Vital Signs Vital Signs 07/04/20 07/04/20 07:23 08:00 Temp 36.4 Pulse 66 Resp 18 B/P (MAP) 143/60 (87) Pulse Ox 96 O2 Delivery Room Air Capillary Refill : Less Than 3 Seconds I&O Intake and Output 07/04/20 00:00 Intake Total 1410 ml Output Total 825 ml Balance 585 ml Intake Oral 1150 ml IV Total 260 ml Output Urine Total 825 ml # Voids 4 General: Alert, Oriented X3, Cooperative HEENT: Atraumatic, PERRLA Neck: Supple, No JVD, No Thyromegaly Lungs: Clear to Auscultation, Normal Air Movement Heart: Regular Rate, Normal S1, Normal S2, No Murmurs Abdomen: Normal Bowel Sounds, Soft, No Tenderness, No Hepatosplenomegaly, No Masses Extremities: No Clubbing, No Cyanosis, No Edema, Normal Pulses, No T enderness/Swelling Skin: No Rashes, No Breakdown, No Significant Lesion Neuro: Normal Gait, Normal Speech, Strength at 5/5 X4 Ext, Normal Tone, Sensation Intact Psych/Mental Status: Mental Status NL, Mood NL A/P-Cardiology Admission Diagnosis Non-ST elevation myocardial infarction Coronary artery disease Hyperlipidemia Hyponatremia (1) NSTEMI (non-ST elevated myocardial infarction) Status: Acute (2) HTN (hypertension) Status: Chronic Assessment/Plan Non-ST elevation myocardial infarction, cardiac catheterization with balloon angioplasty to the right coronary artery was done on July 02, 2020 Coronary artery disease, history of multiple intervention reporting a total of 8 stents in the past. No reported acute EKG abnormality. cardiac catheterization was carried out on July 02, 2020 showing severe second diagonal artery stenosis, small artery not amendable to intervention, had moderate to severe in- stent restenosis in the right coronary artery, patient had multiple overlapping stent, required complex intervention with balloon angioplasty for in-stent restenosis and significant improvement. Currently not having any active chest pain. Continue on aspirin and Plavix as an outpatient Recurrent rigor and chills, questionable sepsis,septic workup did not show any significant abnormality except for the elevated pro-calcitonin, managed by primary care team Hyperlipidemia, continue on statin as an outpatient Hypertension, restart home medication and monitor tolerance and response Hyponatremia, managed by primary care team COVID-19 negative Hypothyroidism, managed and followed by primary care team Okay for discharge from cardiology standpoint TONA TAYLOR MD Jul 04, 2020 10:44
--- NOTE | 2020-07-04 12:11 | NUR ---
CM/SS: Visited with pt as per plan for discharge related to help in the home and possible need for HomeCare. Plan: Pt is from home and will return there with home care (RN and PT) services. Pt will also have a walker from [facility], Summary: Pt seems eager to be able to go home. Pt is able to do some life review and shares that he lives with his son in [place]. The facesheet indicates the address is [place], [place]. The information is verified as well as the phone number. Pt's son and girlfriend are not in the home except when they return as they are truck drivers. There is a neighbor that checks on him on a daily basis. Pt reports being pretty independent prior to his hospital stay. Pt expressed to RN after above conversation that he did not want home care services. This worker returned to the room to talk with him as to home care.. Home care is contacted via phone and talk with pt. Education provided to pt on the home care services services and for them to be short, time limited. He is ok with that. He does request that sons girlfriend be called. He calls her and the plan is relayed to her. She is ok with that at this time. DME is contacted (faxed information) as to his front wheeled walker. They have been requested to delivered to the hospital. Pt does have a ride as well, to [place] - his neighbor can be called. Pt is wished well.
[2020-07-04 12:15] VITALS: BP 148/65
[2020-07-04 15:41] VITALS: BP 138/60
--- NOTE | 2020-07-04 17:00 | NUR ---
THIS NURSE EDUCATED PT ON DISCHARGE INSTRUCTIONS AND CARE. PT STATED UNDERSTANDING. PT EDUCATED ON HOME MEDICATIONS AND FOLLOW UP APPOINTMENTS. PT STATED HE WOULD LIKE TO SCHEDULE HIS OWN APPOINTMENTS. IV DC. PT CALLED [facility]. PT DENIES ANY NEEDS AT THIS TIMES. Addendum: 07/04/20 at 1746 by MASON BOYCE RN PT STATED SON WILL [facility]. NEW WALKER WILL BE DELIVERED TOMORROW MORNING. PT AGREEABLE WITH PLAN.
[2020-07-04 17:36] VITALS: BP 138/60
--- NOTE | 2020-07-05 08:08 | Physician Query Clarification ---
PQ-Further Specificity Admission/Discharge Admission Date: Jun 29, 2020 at 03:39 Discharge Date: Jul 04, 2020 at 17:35 Dr. Lema, The medical record reflects the following clinical scenario: History/Risk factors: Strep pharyngitis, Possible RLL PNA Clinical Findings: PCT 32.45, WBC 15.1, Bands 13%, NSTEMI (type II), Fever at OSH, Treatment: IV azithromycin and Ceftriaxone, Question: Do you agree with the impression of Severe Sepsis per Christina Matos? If you agree, please document in Progress Notes or Discharge Summary. 1. Yes; will document Severe Sepsis in the Progress Notes 2. No; will continue to document likely Bacteremia in the Progress Notes 3. Other; will document explanation of clinical findings 4. Clinically undetermined; no explanation for clinical findings PHYSICIAN RESPONSE Can you specify per above: Other, explanation/clinical finding Explanation/Clinical Findings Sepsis with undetermined source Please remember a lack of response to the above will prompt a phone page by CDI/Coding staff. In responding to this query, please exercise your independent professional judgment. The purpose of this communication is to more accurately reflect the complexity of your patients condition. The fact that a question is asked does not imply that any particular answer is desired or expected. Thank you for your timely response to this clarification. Requestors name: Emerson THIS PHYSICIAN QUERY FORM IS A PERMANENT PART OF THE MEDICAL RECORD EMERSON QUISPE Jul 05, 2020 08:08 MANUELITO LEMA MD Jul 05, 2020 15:12
== END 2020-07-04 17:35 | disposition home health service (06) | DRG 853 ==
LOC: CSD 03:39
PROVIDERS: ADMIT Internal Medicine; ATTEND Family Medicine
PROC: 02703ZZ Dilation of Coronary Artery, One Artery, Percutaneous Approach (ICD-10-PCS; principal; 2020-07-02)
PROC: 4A023N7 Measurement of Cardiac Sampling and Pressure, Left Heart, Percutaneous Approach (ICD-10-PCS; 2020-07-02)
PROC: B2101ZZ Fluoroscopy of Single Coronary Artery using Low Osmolar Contrast (ICD-10-PCS; 2020-07-02)
DX: A41.9 Sepsis, unspecified organism (principal); I21.4 Non-ST elevation (NSTEMI) myocardial infarction; T82.855A Stenosis of coronary artery stent, initial encounter; E87.1 Hypo-osmolality and hyponatremia; J02.0 Streptococcal pharyngitis; I10 Essential (primary) hypertension; E11.9 Type 2 diabetes mellitus without complications; Z20.828 Contact with and (suspected) exposure to other viral communicable diseases; I25.10 Atherosclerotic heart disease of native coronary artery without angina pectoris; K21.9 Gastro-esophageal reflux disease without esophagitis; M10.9 Gout, unspecified; E03.9 Hypothyroidism, unspecified; C61 Malignant neoplasm of prostate; Z87.891 Personal history of nicotine dependence
CPT/HCPCS: 36415; 71045; 78452; 80048; 80053; 81000; 82962; 83605; 84145; 84484; 85007; 85025; 85027; 87040; 87635; 93005; 93017; 93306; 93458

== ENCOUNTER 2020-07-27 04:21 | Emergency (ER) | payer MEDICARE ==
[~2020-07-27] VITALS: Ht 175 cm; Wt 80.0 kg
[~2020-07-27 04:21] MED LIST changes: +ALLO300T2 PO; +AMMO385C5 TOP; +ASPI-1238 PO; +CHOL10007 PO; +CLOP75TA28 PO; +CYAN-41 PO; +DOXY100C2 PO; +FLUO20CA46 PO; +FURO20TA4 PO; +LEVO75TA6 PO; +LISI-556 PO; +METO-333 PO; +REPA1TAB PO; +ROSU10TA28 PO; +TMSL.4C PO; +TRIA15OI9 TOP
[2020-07-27] MEDS ORDERED: diphenhydrAMINE 50 MG/ML INJ (BENADRYL) IVP ONE (04:30)
[2020-07-27] MEDS ORDERED: LORATADINE (CLARITIN) 10 MG TAB PO ONE (04:30)
[2020-07-27] MEDS ORDERED: EPINEPHrine INJECTION 1 MG/ML AMP IM ONE ×2 (04:30→05:15)
[2020-07-27] MEDS ORDERED: FAMOTIDINE 20MG/2ML IV (PEPCID) IVP ONE ×2 (04:30→07:45)
--- NOTE | 2020-07-27 04:33 | ED General ---
General Chief Complaint: Allergic Reaction Stated Complaint: TONGUE Source of Information: Patient Exam Limitations: No Limitations (MEGHA MEDINA) History of Present Illness Date Seen by Provider: Jul 27, 2020 Time Seen by Provider: 04:12 Initial Comments Patient presents ER by EMS from home with chief complaint since 3:00 this morning's had swelling on the left side of his tongue. Is never had this before. No known allergies but he did have some fish last night for dinner which he says he has not had for a long time. No new medications. No new soaps or detergents. No shortness of air cough wheezing fever chills nausea vomiting chest pain. EMS established an IV and gave him some normal saline. Non-STEMI July 02, [address] Gomez. History of 8 stents in the past. 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 Hyperlipidemia, hypertension, hyponatremia, hypothyroidism. (MEGHA MEDINA) Allergies and Home Medications Allergies Coded Allergies: nitroglycerin (Verified Allergy, Unknown, 07/27/20) Home Medications Allopurinol 300 Mg Tablet, 300 MG PO DAILY, (Reported) Ammonium Lactate 385 Gm Cream..g., 1 APPLIC TOP DAILY, (Reported) APPLY TO ARMS AND LEGS Aspirin 81 Mg Tablet.dr, 81 MG PO HS, (Reported) Cholecalciferol (Vitamin D3) 25 Mcg Capsule, 25 MCG PO TID, (Reported) Clopidogrel Bisulfate 75 Mg Tablet, 75 MG PO DAILY Prescribed by: LUCILA HALEY on 07/04/20821 Cyanocobalamin (Vitamin B-12) 1,000 Mcg Tablet, 1,000 MCG PO DAILY, (Reported) Fluoxetine HCl 20 Mg Capsule, 20 MG PO 1700, (Reported) Furosemide 20 Mg Tablet, 20 MG PO Q48H, (Reported) Levothyroxine Sodium 75 Mcg Tablet, 75 MCG PO DAILY, (Reported) Lisinopril 5 Mg Tablet, 5 MG PO BID, (Reported) Metoprolol Tartrate 25 Mg Tablet, 12.5 MG PO BID Prescribed by: LUCILA HALEY on 07/04/20821 Repaglinide 1 Mg Tablet, 2 MG PO DAILY, (Reported) TAKES 2 (1MG) TABS Repaglinide 1 Mg Tablet, 1 MG PO 1700 PRN for HYPERGLYCEMIA, (Reported) Rosuvastatin Calcium 10 Mg Tablet, 10 MG PO HS, (Reported) Tamsulosin HCl 0.4 Mg Cap, 0.4 MG PO 1700, (Reported) Triamcinolone Acetonide 15 Gm Oint, 1 APPFUL TOP PRN PRN for RASH, (Reported) Patient Home Medication List Home Medication List Reviewed: Yes (MEGHA MEDINA) Review of Systems Review of Systems Constitutional: No chills, No diaphoresis EENTM: No ear discharge, No ear pain Respiratory: see HPI; No cough, No short of breath Cardiovascular: No chest pain; Hx of Intervention; No palpitations; vascular heart diseas Gastrointestinal: No abdominal pain, No nausea, No vomiting Genitourinary: No discharge, No dysuria Musculoskeletal: No back pain, No joint pain (MEGHA MEDINA) All Other Systems Reviewed Negative Unless Noted: Yes (MEGHA MEDINA) Past Uzriiwa-Iybwuq-Kodfkp Hx Patient Social History Alcohol Use: Denies Use Recreational Drug Use: No Smoking Status: Never a Smoker (MEGHA MEDINA) Immunizations Up To Date Date of Pneumonia Vaccine: Jun 29, 2018 (MEGHA MEDINA) Seasonal Allergies Seasonal Allergies: No (MEGHA MEDINA) Past Medical History Respiratory: No Cardiac: Yes Neurological: No Reproductive Disorders: No Sexually Transmitted Disease: No Gastrointestinal: No Musculoskeletal: No Endocrine: Yes Blood Disorders: Yes (MEGHA MEDINA) Physical Exam Vital Signs Vital Signs - First Documented 07/27/20 04:25 Temp 36.0 Pulse 54 Resp 16 B/P (MAP) 156/68 (97) O2 Delivery Room Air (DEIRDRE,REEMA K DO) Vital Signs Capillary Refill : (MEGHA MEDINA) Height, Weight, BMI Height: '" Weight: lbs. oz. kg; 25.79 BMI Method: General Appearance: WD/WN, Mild Distress Eyes: Bilateral Eye Normal Inspection, Bilateral Eye PERRL, Bilateral Eye EOMI HEENT: PERRL/EOMI, Moist Mucous Membranes, Other (Significant angioedema left tongue more than the right without inability to swallow or stridor) Neck: Full Range of Motion, Normal Inspection Respiratory: Chest Non Tender, Lungs Clear, Normal Breath Sounds, No Accessory Muscle Use, No Respiratory Distress Cardiovascular: Regular Rate, Rhythm, No Edema, Normal Peripheral Pulses Gastrointestinal: Non Tender, Soft Neurologic/Psychiatric: Alert, Oriented x3, Normal Mood/Affect (MEGHA MEDINA) Progress/Results/Core Measures Suspected Sepsis SIRS Temperature: Pulse: Respiratory Rate: Laboratory Tests 07/27/20 04:28: White Blood Count 5.9 Blood Pressure / Mean: Laboratory Tests 07/27/20 04:28: Creatinine 0.98, Platelet Count 214, Total Bilirubin 0.4 (MEGHA MEDINA) Results/Orders Lab Results Laboratory Tests Test 07/27/20 04:28 Range/Units White Blood Count 5.9 4.3-11.0 10^3/uL Red Blood Count 3.21 L 4.30-5.52 10^6/uL Hemoglobin 10.8 L 13.3-17.7 g/dL Hematocrit 33 L 40-54 % Mean Corpuscular Volume 103 H 80-99 fL Mean Corpuscular Hemoglobin 34 25-34 pg Mean Corpuscular Hemoglobin Concent 33 32-36 g/dL Red Cell Distribution Width 14.2 10.0-14.5 % Platelet Count 214 130-400 10^3/uL Mean Platelet Volume 9.8 9.0-12.2 fL Immature Granulocyte % (Auto) 0 % Neutrophils (%) (Auto) 59 42-75 % Lymphocytes (%) (Auto) 23 12-44 % Monocytes (%) (Auto) 11 0-12 % Eosinophils (%) (Auto) 6 0-10 % Basophils (%) (Auto) 1 0-10 % Neutrophils # (Auto) 3.4 1.8-7.8 10^3/uL Lymphocytes # (Auto) 1.3 1.0-4.0 10^3/uL Monocytes # (Auto) 0.7 0.0-1.0 10^3/uL Eosinophils # (Auto) 0.4 H 0.0-0.3 10^3/uL Basophils # (Auto) 0.1 0.0-0.1 10^3/uL Immature Granulocyte # (Auto) 0.0 0.0-0.1 10^3/uL Sodium Level 133 L 135-145 MMOL/L Potassium Level 4.3 3.6-5.0 MMOL/L Chloride Level 97 L 98-107 MMOL/L Carbon Dioxide Level 25 21-32 MMOL/L Anion Gap 11 5-14 MMOL/L Blood Urea Nitrogen 25 H 7-18 MG/DL Creatinine 0.98 0.60-1.30 MG/DL Estimat Glomerular Filtration Rate > 60 BUN/Creatinine Ratio 26 Glucose Level 117 H 70-105 MG/DL Calcium Level 8.9 8.5-10.1 MG/DL Corrected Calcium 8.9 8.5-10.1 MG/DL Total Bilirubin 0.4 0.1-1.0 MG/DL Aspartate Amino Transf (AST/SGOT) 18 5-34 U/L Alanine Aminotransferase (ALT/SGPT) 12 0-55 U/L Alkaline Phosphatase 73 40-136 U/L Total Protein 6.6 6.4-8.2 GM/DL Albumin 4.0 3.2-4.5 GM/DL (REEMA ORELLANA DO) My Orders Orders - REEMA ORELLANA DO Methylprednisolone Sod Succ (Solu-Medrol (07/27/20 07:45) Famotidine Injection (Pepcid Injection) (07/27/20 07:45) (REEMA ORELLANA DO) Medications Given in ED Current Medications Medications Dose Ordered Sig/Thanh Route Start Time Stop Time Status Last Admin Dose Admin Diphenhydramine HCl 25 mg ONCE ONCE IVP 07/27/20 04:30 07/27/20 04:31 DC 07/27/20 04:38 25 MG Epinephrine HCl 0.3 mg ONCE ONCE IM 07/27/20 04:30 07/27/20 04:31 DC 07/27/20 04:40 0.3 MG Epinephrine HCl 0.3 mg ONCE ONCE IM 07/27/20 05:15 07/27/20 05:16 DC 07/27/20 05:11 0.3 MG Famotidine 20 mg ONCE ONCE IVP 07/27/20 04:30 07/27/20 04:31 DC 07/27/20 04:38 20 MG Famotidine 20 mg ONCE ONCE IVP 07/27/20 07:45 07/27/20 07:46 DC 07/27/20 08:06 20 MG Lactated Ringer's 1,000 ml @ 0 mls/hr Q0M ONCE IV 07/27/20 05:00 07/27/20 05:01 DC 07/27/20 05:14 1,000 MLS/HR Loratadine 10 mg ONCE ONCE PO 07/27/20 04:30 07/27/20 04:31 DC 07/27/20 04:44 10 MG Methylprednisolone Sodium Succinate 125 mg ONCE ONCE IVP 07/27/20 07:45 07/27/20 07:46 DC 07/27/20 08:06 125 MG (DEIRDREREEMA Clayton DO) Vital Signs/I&O 07/27/20 04:25 Temp 36.0 Pulse 54 Resp 16 B/P (MAP) 156/68 (97) O2 Delivery Room Air (REEMA ORELLANA DO) Vital Signs/I&O Capillary Refill : (MEGHA MEDINA) Progress Note : Time: 04:34 Progress Note The patient does use lisinopril and did eat some fish recently which she says she has not had for many years. Angioedema will be addressed with 0.3 mg epinephrine IM, Benadryl, Pepcid and loratadine. Blood pressure is sufficient so will not give any more IV fluids. The rest of his vitals are unremarkable. (MEGHA MEDINA) Progress Note : Progress Note 0600--ASSUMED CARE FROM DR. MEDINA, STILL WITH SWELLING OF TONGUE--LEFT> RIGHT SIDE. PT STATES IT IS A LITTLE BETTER THAN IT WAS. PT IS ABLE TO SWALLOW AND TALK, WITH SOMEWHAT MUFFLED SPEECH. NO DIFFICULTY BREATHING. VITALS STABLE 0745--TONGUE WITH A LITTLE DECREASE IN SWELLING AND SPEECH SLIGHTLY LESS MUFFLED. WILL ADD ANOTHER DOSE OF PEPCID + SOLU-MEDROL. WILL HOLD ADDITIONAL BENADRYL AT THIS TIME DUE TO SOME DROWSINESS. 0900--TONGUE SWELLING DECREASED BY AT LEAST HALF, PT FEELS COMFORTABLE GOING HOME (SCOTT ORELLANAA Clayton PARRISH) Transfer of Care Transfer of Care Time: 06:00 Care transferred to: Dr. Orellana (MEGHA MEDINA) Departure Impression Primary Impression: Angio-edema Qualified Codes: T78.3XXA - Angioneurotic edema, initial encounter Disposition: 01 HOME, SELF-CARE Condition: Improved Departure-Patient Inst. Referrals: DARYA LO MD (PCP/Family) Primary Care Physician Patient Instructions: Angioedema Caused by MAYRA Inhibitor Medicines Add. Discharge Instructions: STOP YOUR LISINOPRIL TAKE CLARITIN 10 MG DAILY NEEDED FOR CONTINUED SWELLING TAKE PEPCID 40 MG TWICE A DAY NEEDED FOR CONTINUED SWELLING CALL YOUR DR TODAY FOR FOLLOW UP VISIT ON THURSDAY, AND INFORM HIM OF TODAY'S ER VISIT, AND THAT WE ADVISED TO STOP LISINOPRIL, AND YOU WILL LIKELY NEED A NEW BLOOD PRESSURE MEDICATION RETURN TO ER IF SYMPTOMS WORSEN All discharge instructions reviewed with patient and/or family. Voiced understanding. Scripts Prednisone (Prednisone) 20 Mg Tab 40 MG PO DAILY, #6 TAB 0 Refills Prov: REEMA ORELLANA DO 07/27/20 MEGHA MEDINA Jul 27, 2020 04:33 REEMA ORELLANA DO Jul 27, 2020 06:14
[2020-07-27 04:37] LABS: BASOPHILS # (AUTO) 0.1 10^3/uL (0.0-0.1); BASOPHILS % (AUTO) 1 % (0-10); EOSINOPHILS # (AUTO) 0.4 10^3/uL (0.0-0.3); EOSINOPHILS % (AUTO) 6 % (0-10); HEMATOCRIT 33 % (40-54); HEMOGLOBIN 10.8 g/dL (13.3-17.7); LYMPHOCYTES # (AUTO) 1.3 10^3/uL (1.0-4.0); LYMPHOCYTES % (AUTO) 23 % (12-44); MEAN CORPUSCULAR HEMOGLOBIN 34 pg (25-34); MEAN CORPUSCULAR HGB CONC 33 g/dL (32-36); MEAN CORPUSCULAR VOLUME 103 fL (80-99); MEAN PLATELET VOLUME 9.8 fL (9.0-12.2); MONOCYTES # (AUTO) 0.7 10^3/uL (0.0-1.0); MONOCYTES % (AUTO) 11 % (0-12); NEUTROPHILS # (AUTO) 3.4 10^3/uL (1.8-7.8); NEUTROPHILS % (AUTO) 59 % (42-75); PLATELET COUNT 214 10^3/uL (130-400); WHITE BLOOD COUNT 5.9 10^3/uL (4.3-11.0)
[2020-07-27 04:43] LABS: CHLORIDE 97 MMOL/L (98-107); POTASSIUM 4.3 MMOL/L (3.6-5.0); SODIUM 133 MMOL/L (135-145)
[2020-07-27 04:44] LABS: CALCIUM 8.9 MG/DL (8.5-10.1)
[2020-07-27 04:45] LABS: GLUCOSE 117 MG/DL (70-105); TOTAL PROTEIN 6.6 GM/DL (6.4-8.2)
[2020-07-27 04:46] LABS: CARBON DIOXIDE 25 MMOL/L (21-32)
[2020-07-27 04:47] LABS: BILIRUBIN,TOTAL 0.4 MG/DL (0.1-1.0)
[2020-07-27 04:48] LABS: ALKALINE PHOSPHATASE 73 U/L (40-136)
[2020-07-27 04:49] LABS: CREATININE SERUM 0.98 MG/DL (0.60-1.30); GFR ESTIMATED > 60
[2020-07-27 04:50] LABS: BUN/CREATININE RATIO 26
[2020-07-27 04:52] LABS: ALANINE AMINOTRANSFERASE 12 U/L (0-55)
[2020-07-27] MEDS ORDERED: LACTATED RINGERS 1,000 ML IV ONE (05:00)
--- NOTE | 2020-07-27 05:10 | NUR ---
PT STATES HE FEELS LIKE SWELLING IS GETTING BETTER. MINIMAL DECREASE IN SWELLING NOTED TO LEFT SIDE TONGUE. NO RESPIRATORY DISTRESS NOTED. DR. MEDINA NOTIFIED.
--- NOTE | 2020-07-27 05:54 | NUR ---
PT STATES HE FEELS LIKE SWELLING IS STILL GETTING BETTER. NOTICEABLE DECREASE IN SWELLING NOTED TO LEFT SIDE TONGUE. NO RESPIRATORY DISTRESS NOTED. DR. MEDINA NOTIFIED.
[2020-07-27] MEDS ORDERED: methylPREDNISolone 125 MG (Solu-MEDROL) VIAL IVP ONE (07:45)
[2020-07-27] MEDS ORDERED: PRD20T PO (08:53)
[2020-07-27 09:43] VITALS: BP 148/75
== END 2020-07-27 09:43 | disposition home or self-care (01) ==
LOC: EDUNIT# 04:21 → ER 04:23
DX: T78.3XXA Angioneurotic edema, initial encounter (principal); I10 Essential (primary) hypertension; E78.5 Hyperlipidemia, unspecified; E03.9 Hypothyroidism, unspecified; Z88.8 Allergy status to other drugs, medicaments and biological substances; Z79.82 Long term (current) use of aspirin; Z79.890 Hormone replacement therapy
CPT/HCPCS: 36415; 80053; 85025